=== PATIENT | male | born 1955 | race Caucasian/White ===

== ENCOUNTER 2020-08-28 11:30 | Inpatient (IN) ==
[2020-08-28 12:05] LABS: Hemoglobin 10.5 GM/DL (14.0-18.0); Immature Granulocytes % 0.8 %; Immature Granulocytes Absolute 0.04 #; Lymphocytes # 1.3 10*3/uL (1.4-4.0); Mean Platelet Volume 10.1 FL (9.6-12.0); Neutrophils % 65.2 % (38.7-73.9); Platelet Count 121 T/CUMM (130-400); Red Blood Count 3.37 MC/CUMM (3.8-5.5); Red Cell Distribution Width 14.6 % (9.3-17.3); White Blood Count 4.9 T/CUMM (4-12)
[2020-08-28 12:27] LABS: Bilirubin,Total 0.6 MG/DL (0.2-1.0); Calcium 7.6 MG/DL (8.5-10.1); Ferritin 364.5 ng/ml (26-388); Total Protein 6.4 G/DL (6.4-8.3)
[2020-08-28 12:28] LABS: Anisocytosis 1+; Platelet Estimate Adequate
[2020-08-28] MEDS ORDERED: SODIUM CHLORIDE 0.9% 1,000 ML IV STA ×2 (12:34→13:07)
[2020-08-28 12:59] LABS: PT Patient Result 10.6 SECS (9.8-11.9)
[2020-08-28] MEDS ORDERED: GLUCAGON 1 MG VIAL IM PRN (13:40)
[2020-08-28] MEDS ORDERED: DEXTROSE 50% 25 GM/50 ML VIAL IV PRN (13:40)
[2020-08-28] MEDS ORDERED: ONDANSETRON 4 MG/2 ML VIAL IV PRN (13:40)
[2020-08-28] MEDS ORDERED: POTASSIUM CHLORIDE 20 MEQ TABLET PO ONE (13:43)
[2020-08-28] MEDS ORDERED: CETIRIZINE 10 MG TABLET PO STA (13:45)
[2020-08-28] MEDS ORDERED: AZITHROMYCIN INJ 500 MG in SODIUM CHLORIDE 0.9% 250 ML IV STA (13:47)
[2020-08-28] MEDS ORDERED: DEXAMETHASONE INJ 6 MG in SODIUM CHLORIDE 0.9% 50 ML IV SCH (14:00)
[2020-08-28] MEDS ORDERED: AZITHROMYCIN INJ 250 MG in SODIUM CHLORIDE 0.9% 250 ML IV SCH (14:00)
[2020-08-28] MEDS ORDERED: cefTRIAXone 1,000 MG in SYRINGE 1 EACH IV SCH (14:00)
[2020-08-28] MEDS ORDERED: DEXAMETHASONE 4 MG/1 ML VIAL ONE (14:15)
[2020-08-28] MEDS: ENOXAPARIN 40 MG/0.4 ML SYRINGE SUBCUT SCH (14:27)
[2020-08-28] MEDS ORDERED: REMDESIVIR 200 MG in SODIUM CHLORIDE 0.9% 210 ML IV ONE (16:00)
[2020-08-28] MEDS: INSULIN LISPRO 100 UNIT/ML SUBCUT SCH ×2 (16:00→23:58)
[2020-08-28] MEDS: ZINC GLUCONATE 50 MG TABLET PO SCH (16:25)
[2020-08-28] MEDS: CHOLECALCIFEROL 400 UNIT TABLET PO SCH (16:25)
[2020-08-28] MEDS: ASCORBIC ACID 500 MG TABLET PO SCH ×2 (16:25→22:30)
[2020-08-28] MEDS: ACETAMINOPHEN 325 MG TABLET PO PRN (16:33)
[2020-08-28] MEDS: ALBUTEROL INHALER 18 GM INH SCH (18:14)
[2020-08-28] MEDS: FAMOTIDINE 20 MG TABLET PO SCH (23:57)
[2020-08-29 02:06] LABS: Albumin 2.7 G/DL (3.4-5.0); Bilirubin,Total 0.4 MG/DL (0.2-1.0); Calcium 7.4 MG/DL (8.5-10.1); Osmolality,Calculated 288.7 MOS/KG (273-304); Total Protein 6.6 G/DL (6.4-8.3)
[2020-08-29 02:07] LABS: Risk Ratio 2.71; VLDL CHOLESTEROL 20.6 MG/DL
[2020-08-29 02:18] LABS: Basophils % 0.3 % (0.0-0.8); Hematocrit 30.2 VOL% (42.0-52.0); Hemoglobin 10.5 GM/DL (14.0-18.0); Immature Granulocytes % 0.8 %; Immature Granulocytes Absolute 0.03 #; Lymphocytes # 1.1 10*3/uL (1.4-4.0); Lymphocytes % 29.4 % (21.2-54.2); Mean Corpuscular HGB Conc 34.8 GM/DL (32-36); Mean Corpuscular Volume 90.4 FL (87-102); Mean Platelet Volume 10.1 FL (9.6-12.0); Monocytes % 6.3 % (1.7-12.7); Neutrophils % 63.2 % (38.7-73.9); Platelet Count 115 T/CUMM (130-400); Red Blood Count 3.34 MC/CUMM (3.8-5.5); Red Cell Distribution Width 14.6 % (9.3-17.3); White Blood Count 3.8 T/CUMM (4-12)
[2020-08-29 02:36] LABS: Ferritin 385.7 ng/ml (26-388)
[2020-08-29 04:00] LABS: Hypochromasia 1+; Microcytosis 1+; Platelet Estimate Decreased
[2020-08-29] MEDS: REMDESIVIR 100 MG in SODIUM CHLORIDE 0.9% 100 ML IV SCH (08:50)
[2020-08-29] MEDS: ASCORBIC ACID 500 MG TABLET PO SCH ×2 (08:50→21:30)
[2020-08-29] MEDS: FAMOTIDINE 20 MG TABLET PO SCH ×2 (08:50→21:29)
[2020-08-29] MEDS: ZINC GLUCONATE 50 MG TABLET PO SCH (08:50)
[2020-08-29] MEDS: CHOLECALCIFEROL 400 UNIT TABLET PO SCH (08:50)
[2020-08-29] MEDS: ALBUTEROL INHALER 18 GM INH SCH ×4 (08:50→18:15)
[2020-08-29] MEDS: AZITHROMYCIN 250 MG TABLET PO SCH (08:50)
[2020-08-29] MEDS: DEXAMETHASONE 4 MG/1 ML VIAL IV SCH (08:51)
[2020-08-29] MEDS: INSULIN LISPRO 100 UNIT/ML SUBCUT SCH ×4 (08:51→21:28)
[2020-08-29] MEDS: cefTRIAXone 1,000 MG in SYRINGE 1 EACH IV SCH (08:52)
[2020-08-29] MEDS ORDERED: SODIUM CHLORIDE 0.9% 1,000 ML IV PRN (11:55)
[2020-08-29] MEDS ORDERED: INSULIN NPH/REGULAR 70/30 100 UNIT/ML SUBCUT SCH (17:00)
[2020-08-29] MEDS ORDERED: SIMVASTATIN 20 MG TABLET PO SCH (21:00)
[2020-08-29] MEDS: ENOXAPARIN 40 MG/0.4 ML SYRINGE SUBCUT SCH (21:29)
[2020-08-30 02:42] LABS: ABG Base Excess 4.5 MMOL/L (-2.5-2.5); ABG HCO3 27.9 MMOL/L (20-26); ABG Oxygen Saturation 67.9 % (95-100); ABG PCO2 40.4 MM HG (35-48); ABG PH 7.459 (7.35-7.45); ABG TCO2 25.5 MMOL/L (23-27); Allen Test Positive
[2020-08-30 02:50] LABS: ABG PO2 36.4 MM HG (80-95)
[2020-08-30] MEDS: ALBUTEROL INHALER 18 GM INH SCH ×4 (03:27→18:02)
[2020-08-30 06:27] LABS: Basophils % 0.1 % (0.0-0.8); Hematocrit 33.7 VOL% (42.0-52.0); Hemoglobin 11.5 GM/DL (14.0-18.0); Immature Granulocytes Absolute 0.07 #; Lymphocytes # 1.2 10*3/uL (1.4-4.0); Lymphocytes % 16.9 % (21.2-54.2); Mean Corpuscular HGB Conc 34.1 GM/DL (32-36); Mean Corpuscular Volume 90.8 FL (87-102); Mean Platelet Volume 9.2 FL (9.6-12.0); Monocytes % 7.6 % (1.7-12.7); NRBC # 0.03 10*3/uL; Neutrophils % 74.4 % (38.7-73.9); Platelet Count 132 T/CUMM (130-400); Red Blood Count 3.71 MC/CUMM (3.8-5.5); Red Cell Distribution Width 14.4 % (9.3-17.3)
[2020-08-30 07:00] LABS: Albumin 2.8 G/DL (3.4-5.0); Bilirubin,Total 1.4 MG/DL (0.2-1.0); Calcium 7.7 MG/DL (8.5-10.1); Ferritin 456.9 ng/ml (26-388); Osmolality,Calculated 282.1 MOS/KG (273-304); Total Protein 6.8 G/DL (6.4-8.3)
[2020-08-30] MEDS ORDERED: INSULIN NPH/REGULAR 70/30 100 UNIT/ML SUBCUT SCH (08:00)
[2020-08-30] MEDS: INSULIN LISPRO 100 UNIT/ML SUBCUT SCH ×4 (08:59→21:40)
[2020-08-30] MEDS: cefTRIAXone 1,000 MG in SYRINGE 1 EACH IV SCH (09:01)
[2020-08-30] MEDS: DEXAMETHASONE 4 MG/1 ML VIAL IV SCH (09:02)
[2020-08-30] MEDS: ZINC GLUCONATE 50 MG TABLET PO SCH (09:02)
[2020-08-30] MEDS: ASCORBIC ACID 500 MG TABLET PO SCH ×2 (09:02→21:36)
[2020-08-30] MEDS: FOLIC ACID 1 MG TABLET PO SCH (09:02)
[2020-08-30] MEDS: FAMOTIDINE 20 MG TABLET PO SCH ×2 (09:02→21:36)
[2020-08-30] MEDS: CHOLECALCIFEROL 400 UNIT TABLET PO SCH (09:02)
[2020-08-30] MEDS: AZITHROMYCIN 250 MG TABLET PO SCH (09:02)
[2020-08-30] MEDS: REMDESIVIR 100 MG in SODIUM CHLORIDE 0.9% 100 ML IV SCH (09:30)
[2020-08-30] MEDS ORDERED: MAGNESIUM SULF RIDER 2 GM in PREMIX 1 EACH IV PRN (09:50)
[2020-08-30] MEDS ORDERED: MAGNESIUM SULF RIDER 4 GM in PREMIX 1 EACH IV PRN (09:50)
[2020-08-30 10:06] LABS: Bilirubin,Urine Negative (Negative); Blood, Urine Negative (Negative); Glucose,Urine (UA) Negative (Negative); Hyaline Casts,Urine 1 /LPF (0-3); Ketones,Urine Negative (Negative); Nitrite,Urine Negative (Negative); Protein,Urine Negative; RBC,Urine 1 /HPF (0-4); Urine Appearance CLEAR (Clear); Urine Color Yellow (Yellow); Urine Specific Gravity 1.016 (1.001-1.035); WBC,Urine 2 /HPF (0-6)
[2020-08-30] MEDS: ENOXAPARIN 40 MG/0.4 ML SYRINGE SUBCUT SCH ×2 (10:31→21:37)
[2020-08-30] MEDS: methylPREDNISolone SOD SUC 40 MG/1 ML VIAL IV SCH ×3 (11:40→23:57)
[2020-08-30 12:51] LABS: Sedimentation Rate-Westergren 80 MM/HR (0-20)
[2020-08-30] MEDS: POTASSIUM CHLORIDE 20 MEQ TABLET PO PRN ×2 (14:40→17:32)
[2020-08-30 22:17] LABS: ABG Base Excess 3.2 MMOL/L (-2.5-2.5); ABG HCO3 27.2 MMOL/L (20-26); ABG Oxygen Saturation 95.4 % (95-100); ABG PCO2 37.6 MM HG (35-48); ABG PH 7.463 (7.35-7.45); ABG PO2 76.8 MM HG (80-95); ABG TCO2 24.1 MMOL/L (23-27)
[2020-08-31] MEDS: MORPHINE 4 MG/1 ML VIAL IV PRN ×2 (02:01→20:55)
[2020-08-31 04:19] LABS: ABG Base Excess 3.9 MMOL/L (-2.5-2.5); ABG HCO3 27.9 MMOL/L (20-26); ABG Oxygen Saturation 97.9 % (95-100); ABG PCO2 39.9 MM HG (35-48); ABG PH 7.463 (7.35-7.45); ABG PO2 123.5 MM HG (80-95); ABG TCO2 29.2 MMOL/L (23-27); Allen Test Positive; Pt O2 Delivery Device BIPAP
[2020-08-31] MEDS: POTASSIUM CHLORIDE 20 MEQ TABLET PO PRN (04:37)
[2020-08-31] MEDS: ALBUTEROL INHALER 18 GM INH SCH ×4 (04:50→18:14)
[2020-08-31] MEDS: methylPREDNISolone SOD SUC 40 MG/1 ML VIAL IV SCH ×2 (05:57→20:53)
[2020-08-31 07:22] LABS: Basophils % 0.2 % (0.0-0.8); Hematocrit 31.8 VOL% (42.0-52.0); Hemoglobin 10.5 GM/DL (14.0-18.0); Immature Granulocytes % 1.4 %; Immature Granulocytes Absolute 0.06 #; Lymphocytes % 23.3 % (21.2-54.2); Mean Corpuscular Volume 92.7 FL (87-102); Mean Platelet Volume 9.6 FL (9.6-12.0); Monocytes % 6.9 % (1.7-12.7); NRBC # 0.03 10*3/uL; Neutrophils % 68.2 % (38.7-73.9); Platelet Count 149 T/CUMM (130-400); Red Blood Count 3.43 MC/CUMM (3.8-5.5); Red Cell Distribution Width 14.6 % (9.3-17.3)
[2020-08-31 07:27] LABS: White Blood Count 4.4 T/CUMM (4-12)
[2020-08-31 07:52] LABS: Albumin 2.8 G/DL (3.4-5.0); Bilirubin,Total 0.6 MG/DL (0.2-1.0); Ferritin 417.6 ng/ml (26-388); Osmolality,Calculated 297.1 MOS/KG (273-304); Total Protein 6.6 G/DL (6.4-8.3)
[2020-08-31 08:38] LABS: Band Neutrophils 10 % (0-10); Lymphocytes 18 % (20-55); Metamyelocytes 1 %; Nucleated Red Blood Cells 2 (0-5); Segmented Neutrophils 65 % (50-85); Total Cells Counted 100
[2020-08-31 08:39] LABS: Anisocytosis 2+; Macrocytosis Slight; Tear Drop Cells Few
[2020-08-31] MEDS: INSULIN LISPRO 100 UNIT/ML SUBCUT SCH ×4 (08:48→20:52)
[2020-08-31] MEDS: FAMOTIDINE 20 MG TABLET PO SCH ×2 (08:49→20:58)
[2020-08-31] MEDS: CHOLECALCIFEROL 400 UNIT TABLET PO SCH (08:49)
[2020-08-31] MEDS: ASCORBIC ACID 500 MG TABLET PO SCH ×2 (08:49→20:58)
[2020-08-31] MEDS: cefTRIAXone 1,000 MG in SYRINGE 1 EACH IV SCH (08:49)
[2020-08-31] MEDS: AZITHROMYCIN 250 MG TABLET PO SCH (08:49)
[2020-08-31] MEDS: ZINC GLUCONATE 50 MG TABLET PO SCH (08:49)
[2020-08-31] MEDS: FOLIC ACID 1 MG TABLET PO SCH (08:50)
[2020-08-31] MEDS: ENOXAPARIN 40 MG/0.4 ML SYRINGE SUBCUT SCH ×2 (09:09→20:52)
[2020-08-31] MEDS: REMDESIVIR 100 MG in SODIUM CHLORIDE 0.9% 100 ML IV SCH (09:56)
[2020-08-31 10:00] LABS: Sedimentation Rate-Westergren 101 MM/HR (0-20)
[2020-08-31] MEDS ORDERED: INSULIN GLARGINE 100 UNIT/ML SUBCUT SCH ×2 (10:30→11:00)
[2020-09-01] MEDS: ALBUTEROL INHALER 18 GM INH SCH ×4 (01:34→18:01)
[2020-09-01 04:29] LABS: Basophils % 0.1 % (0.0-0.8); Hematocrit 32.6 VOL% (42.0-52.0); Hemoglobin 10.6 GM/DL (14.0-18.0); Immature Granulocytes % 1.4 %; Lymphocytes # 0.9 10*3/uL (1.4-4.0); Lymphocytes % 13.3 % (21.2-54.2); Mean Corpuscular HGB Conc 32.5 GM/DL (32-36); Mean Corpuscular Volume 94.8 FL (87-102); Mean Platelet Volume 9.6 FL (9.6-12.0); Monocytes % 5.3 % (1.7-12.7); NRBC # 0.02 10*3/uL; Neutrophils % 79.9 % (38.7-73.9); Platelet Count 145 T/CUMM (130-400); Red Blood Count 3.44 MC/CUMM (3.8-5.5); Red Cell Distribution Width 14.4 % (9.3-17.3); White Blood Count 6.9 T/CUMM (4-12)
[2020-09-01 04:43] LABS: ABG Base Excess 2.2 MMOL/L (-2.5-2.5); ABG HCO3 26.3 MMOL/L (20-26); ABG Oxygen Saturation 98.8 % (95-100); ABG PCO2 43.6 MM HG (35-48); ABG PH 7.404 (7.35-7.45); ABG TCO2 24.1 MMOL/L (23-27); Allen Test Positive; Pt O2 Delivery Device BIPAP
[2020-09-01 05:30] LABS: Albumin 2.7 G/DL (3.4-5.0); Bilirubin,Total 0.5 MG/DL (0.2-1.0); Calcium 7.9 MG/DL (8.5-10.1); Ferritin 419.8 ng/ml (26-388); Osmolality,Calculated 298.1 MOS/KG (273-304); Total Protein 6.5 G/DL (6.4-8.3)
[2020-09-01 05:47] LABS: Sedimentation Rate-Westergren 82 MM/HR (0-20)
[2020-09-01] MEDS ORDERED: FUROSEMIDE 40 MG/4 ML VIAL IV ONE (08:10)
[2020-09-01] MEDS: ZINC GLUCONATE 50 MG TABLET PO SCH (09:25)
[2020-09-01] MEDS: cefTRIAXone 1,000 MG in SYRINGE 1 EACH IV SCH (09:25)
[2020-09-01] MEDS: ASCORBIC ACID 500 MG TABLET PO SCH ×2 (09:25→20:45)
[2020-09-01] MEDS: CHOLECALCIFEROL 400 UNIT TABLET PO SCH (09:25)
[2020-09-01] MEDS: AZITHROMYCIN 250 MG TABLET PO SCH (09:25)
[2020-09-01] MEDS: FOLIC ACID 1 MG TABLET PO SCH (09:25)
[2020-09-01] MEDS: FAMOTIDINE 20 MG TABLET PO SCH ×2 (09:25→20:45)
[2020-09-01] MEDS: ENOXAPARIN 40 MG/0.4 ML SYRINGE SUBCUT SCH ×2 (09:26→21:00)
[2020-09-01] MEDS: methylPREDNISolone SOD SUC 40 MG/1 ML VIAL IV SCH ×2 (09:26→20:45)
[2020-09-01] MEDS: INSULIN ASPART PROTAMINE/ASPART 70/30 100 UNIT/ML SUBCUT SCH ×2 (09:33→16:57)
[2020-09-01] MEDS: INSULIN LISPRO 100 UNIT/ML SUBCUT SCH ×4 (09:34→20:44)
[2020-09-01] MEDS: REMDESIVIR 100 MG in SODIUM CHLORIDE 0.9% 100 ML IV SCH (10:22)
[2020-09-02] MEDS: ALBUTEROL INHALER 18 GM INH SCH ×4 (00:26→18:30)
[2020-09-02 04:26] LABS: Basophils % 0.1 % (0.0-0.8); Eosinophils % 0.2 % (0.00-10.9); Hematocrit 31.8 VOL% (42.0-52.0); Hemoglobin 10.9 GM/DL (14.0-18.0); Immature Granulocytes % 1.9 %; Immature Granulocytes Absolute 0.18 #; Lymphocytes # 1.3 10*3/uL (1.4-4.0); Mean Corpuscular HGB Conc 34.3 GM/DL (32-36); Mean Corpuscular Volume 91.6 FL (87-102); Mean Platelet Volume 9.8 FL (9.6-12.0); Monocytes % 5.3 % (1.7-12.7); Neutrophils % 78.5 % (38.7-73.9); Platelet Count 158 T/CUMM (130-400); Red Blood Count 3.47 MC/CUMM (3.8-5.5); Red Cell Distribution Width 14.3 % (9.3-17.3); White Blood Count 9.4 T/CUMM (4-12)
[2020-09-02 04:30] LABS: ABG Base Excess 3.2 MMOL/L (-2.5-2.5); ABG HCO3 27.2 MMOL/L (20-26); ABG Oxygen Saturation 98.5 % (95-100); ABG PCO2 41.2 MM HG (35-48); ABG PH 7.435 (7.35-7.45); ABG TCO2 24.5 MMOL/L (23-27); Allen Test Positive; Pt O2 Delivery Device BIPAP
[2020-09-02 04:42] LABS: Calcium 7.9 MG/DL (8.5-10.1); Ferritin 515.3 ng/ml (26-388); Osmolality,Calculated 290.8 MOS/KG (273-304)
[2020-09-02] MEDS: INSULIN LISPRO 100 UNIT/ML SUBCUT SCH ×4 (07:50→21:40)
[2020-09-02] MEDS: ZINC GLUCONATE 50 MG TABLET PO SCH (09:11)
[2020-09-02] MEDS: ASCORBIC ACID 500 MG TABLET PO SCH ×2 (09:11→21:41)
[2020-09-02] MEDS: FAMOTIDINE 20 MG TABLET PO SCH ×2 (09:11→21:40)
[2020-09-02] MEDS: FOLIC ACID 1 MG TABLET PO SCH (09:11)
[2020-09-02] MEDS: CHOLECALCIFEROL 400 UNIT TABLET PO SCH (09:11)
[2020-09-02] MEDS: ENOXAPARIN 40 MG/0.4 ML SYRINGE SUBCUT SCH ×2 (09:12→21:41)
[2020-09-02] MEDS: methylPREDNISolone SOD SUC 40 MG/1 ML VIAL IV SCH ×2 (09:12→21:40)
[2020-09-02] MEDS: POTASSIUM CHLORIDE 20 MEQ TABLET PO PRN ×2 (09:12→12:29)
[2020-09-02] MEDS: INSULIN ASPART PROTAMINE/ASPART 70/30 100 UNIT/ML SUBCUT SCH ×2 (09:14→16:22)
[2020-09-02] MEDS: cefTRIAXone 1,000 MG in SYRINGE 1 EACH IV SCH (09:14)
[2020-09-02] MEDS: ACETAMINOPHEN 325 MG TABLET PO PRN (12:28)
[2020-09-02] MEDS: MORPHINE 4 MG/1 ML VIAL IV PRN (14:53)
[2020-09-03] MEDS: ALBUTEROL INHALER 18 GM INH SCH ×4 (00:25→18:10)
[2020-09-03 04:07] LABS: Basophils % 0.1 % (0.0-0.8); Eosinophils % 0.1 % (0.00-10.9); Hematocrit 35.1 VOL% (42.0-52.0); Hemoglobin 11.5 GM/DL (14.0-18.0); Immature Granulocytes % 1.9 %; Immature Granulocytes Absolute 0.17 #; Lymphocytes # 1.1 10*3/uL (1.4-4.0); Lymphocytes % 12.1 % (21.2-54.2); Mean Corpuscular HGB Conc 32.8 GM/DL (32-36); Mean Corpuscular Volume 93.4 FL (87-102); Mean Platelet Volume 10.5 FL (9.6-12.0); Monocytes % 3.2 % (1.7-12.7); Neutrophils % 82.6 % (38.7-73.9); Red Blood Count 3.76 MC/CUMM (3.8-5.5); Red Cell Distribution Width 14.6 % (9.3-17.3); White Blood Count 9.2 T/CUMM (4-12)
[2020-09-03 04:15] LABS: Platelet Count 125 T/CUMM (130-400)
[2020-09-03 04:34] LABS: Calcium 8.1 MG/DL (8.5-10.1); Osmolality,Calculated 283.1 MOS/KG (273-304)
[2020-09-03 05:06] LABS: Platelet Estimate Adequate; Polychromasia Few
[2020-09-03] MEDS: INSULIN LISPRO 100 UNIT/ML SUBCUT SCH ×4 (08:57→20:29)
[2020-09-03] MEDS: INSULIN ASPART PROTAMINE/ASPART 70/30 100 UNIT/ML SUBCUT SCH ×2 (09:39→17:40)
[2020-09-03] MEDS: CHOLECALCIFEROL 400 UNIT TABLET PO SCH (09:40)
[2020-09-03] MEDS: FOLIC ACID 1 MG TABLET PO SCH (09:40)
[2020-09-03] MEDS: ZINC GLUCONATE 50 MG TABLET PO SCH (09:40)
[2020-09-03] MEDS: POTASSIUM CHLORIDE 20 MEQ TABLET PO PRN (09:40)
[2020-09-03] MEDS: ASCORBIC ACID 500 MG TABLET PO SCH ×2 (09:40→20:29)
[2020-09-03] MEDS: FAMOTIDINE 20 MG TABLET PO SCH ×2 (09:40→20:29)
[2020-09-03] MEDS: methylPREDNISolone SOD SUC 40 MG/1 ML VIAL IV SCH ×2 (09:41→20:29)
[2020-09-03] MEDS: ENOXAPARIN 40 MG/0.4 ML SYRINGE SUBCUT SCH ×2 (09:42→21:55)
[2020-09-03] MEDS: cefTRIAXone 1,000 MG in SYRINGE 1 EACH IV SCH (09:45)
[2020-09-03] MEDS ORDERED: FUROSEMIDE 40 MG/4 ML VIAL IV ONE (10:26)
[2020-09-03] MEDS: amLODIPine 10 MG TABLET PO SCH (14:29)
[2020-09-03] MEDS: lisinopriL 5 MG TABLET PO SCH (14:29)
[2020-09-03] MEDS: MORPHINE 4 MG/1 ML VIAL IV PRN (20:30)
[2020-09-04] MEDS: ALBUTEROL INHALER 18 GM INH SCH ×4 (02:32→19:00)
[2020-09-04] MEDS: INSULIN LISPRO 100 UNIT/ML SUBCUT SCH ×4 (08:48→21:04)
[2020-09-04] MEDS: INSULIN ASPART PROTAMINE/ASPART 70/30 100 UNIT/ML SUBCUT SCH ×2 (08:49→18:42)
[2020-09-04] MEDS: FOLIC ACID 1 MG TABLET PO SCH (08:49)
[2020-09-04] MEDS: cefTRIAXone 1,000 MG in SYRINGE 1 EACH IV SCH (08:49)
[2020-09-04] MEDS: amLODIPine 10 MG TABLET PO SCH (08:49)
[2020-09-04] MEDS: lisinopriL 5 MG TABLET PO SCH ×2 (08:50→21:04)
[2020-09-04] MEDS: ZINC GLUCONATE 50 MG TABLET PO SCH (08:50)
[2020-09-04] MEDS: ASCORBIC ACID 500 MG TABLET PO SCH ×2 (08:50→21:03)
[2020-09-04] MEDS: FAMOTIDINE 20 MG TABLET PO SCH ×2 (08:50→21:04)
[2020-09-04] MEDS: CHOLECALCIFEROL 400 UNIT TABLET PO SCH (08:50)
[2020-09-04] MEDS: methylPREDNISolone SOD SUC 40 MG/1 ML VIAL IV SCH ×2 (08:50→21:04)
[2020-09-04] MEDS: ENOXAPARIN 40 MG/0.4 ML SYRINGE SUBCUT SCH ×2 (10:01→21:04)
[2020-09-04] MEDS: hydrALAZINE 20 MG/1 ML VIAL IV PRN (12:20)
[2020-09-04] MEDS: MORPHINE 4 MG/1 ML VIAL IV PRN (13:52)
[2020-09-04] MEDS: ALPRAZolam 0.25 MG TABLET PO SCH ×2 (14:40→21:04)
[2020-09-05] MEDS: ALBUTEROL INHALER 18 GM INH SCH ×4 (01:00→18:00)
[2020-09-05] MEDS: MORPHINE 4 MG/1 ML VIAL IV PRN (01:01)
[2020-09-05 04:48] LABS: Basophils % 0.2 % (0.0-0.8); Eosinophils % 0.1 % (0.00-10.9); Hemoglobin 13.3 GM/DL (14.0-18.0); Immature Granulocytes % 1.3 %; Immature Granulocytes Absolute 0.17 #; Lymphocytes # 1.9 10*3/uL (1.4-4.0); Lymphocytes % 14.7 % (21.2-54.2); Mean Corpuscular HGB Conc 34.1 GM/DL (32-36); Mean Corpuscular Volume 89.7 FL (87-102); Mean Platelet Volume 9.5 FL (9.6-12.0); Monocytes % 3.3 % (1.7-12.7); Neutrophils % 80.4 % (38.7-73.9); Platelet Count 166 T/CUMM (130-400); Red Blood Count 4.35 MC/CUMM (3.8-5.5); Red Cell Distribution Width 14.2 % (9.3-17.3); White Blood Count 12.6 T/CUMM (4-12)
[2020-09-05 05:02] LABS: ABG Base Excess 4.4 MMOL/L (-2.5-2.5); ABG HCO3 28.3 MMOL/L (20-26); ABG Oxygen Saturation 95.3 % (95-100); ABG PCO2 42.1 MM HG (35-48); ABG PH 7.445 (7.35-7.45); Allen Test Positive; Pt O2 Delivery Device BIPAP
[2020-09-05 05:26] LABS: Calcium 8.2 MG/DL (8.5-10.1); Osmolality,Calculated 285.1 MOS/KG (273-304)
[2020-09-05] MEDS: INSULIN LISPRO 100 UNIT/ML SUBCUT SCH ×4 (07:44→20:22)
[2020-09-05] MEDS: ALPRAZolam 0.25 MG TABLET PO SCH ×3 (08:59→20:20)
[2020-09-05] MEDS: ZINC GLUCONATE 50 MG TABLET PO SCH (08:59)
[2020-09-05] MEDS: ASCORBIC ACID 500 MG TABLET PO SCH ×2 (08:59→20:20)
[2020-09-05] MEDS: amLODIPine 10 MG TABLET PO SCH (09:00)
[2020-09-05] MEDS: FOLIC ACID 1 MG TABLET PO SCH (09:00)
[2020-09-05] MEDS: CHOLECALCIFEROL 400 UNIT TABLET PO SCH (09:00)
[2020-09-05] MEDS: lisinopriL 5 MG TABLET PO SCH ×2 (09:00→20:22)
[2020-09-05] MEDS: methylPREDNISolone SOD SUC 40 MG/1 ML VIAL IV SCH ×2 (09:00→20:22)
[2020-09-05] MEDS: ENOXAPARIN 40 MG/0.4 ML SYRINGE SUBCUT SCH ×2 (09:00→21:11)
[2020-09-05] MEDS: FAMOTIDINE 20 MG TABLET PO SCH ×2 (09:00→20:20)
[2020-09-05] MEDS: cefTRIAXone 1,000 MG in SYRINGE 1 EACH IV SCH ×2 (09:26→20:27)
[2020-09-05] MEDS: INSULIN ASPART PROTAMINE/ASPART 70/30 100 UNIT/ML SUBCUT SCH (09:27)
[2020-09-05] MEDS: POTASSIUM CHLORIDE 20 MEQ TABLET PO PRN (18:00)
[2020-09-05] MEDS: DOCUSATE SODIUM 100 MG CAPSULE PO SCH (20:20)
[2020-09-05] MEDS: HALOPERIDOL 5 MG/ML AMP IV PRN (20:26)
[2020-09-05] MEDS: ZIPRASIDONE 20 MG/1 ML VIAL IM PRN (21:51)
[2020-09-06] MEDS: ALBUTEROL INHALER 18 GM INH SCH ×4 (01:28→18:00)
[2020-09-06] MEDS: INSULIN LISPRO 100 UNIT/ML SUBCUT SCH ×4 (07:58→20:28)
[2020-09-06] MEDS: ZIPRASIDONE 20 MG/1 ML VIAL IM PRN ×2 (07:58→22:36)
[2020-09-06] MEDS: INSULIN ASPART PROTAMINE/ASPART 70/30 100 UNIT/ML SUBCUT SCH ×2 (09:11→17:36)
[2020-09-06] MEDS: FAMOTIDINE 20 MG TABLET PO SCH ×2 (09:11→20:29)
[2020-09-06] MEDS: amLODIPine 10 MG TABLET PO SCH (09:11)
[2020-09-06] MEDS: ASCORBIC ACID 500 MG TABLET PO SCH ×2 (09:11→20:28)
[2020-09-06] MEDS: CHOLECALCIFEROL 400 UNIT TABLET PO SCH (09:11)
[2020-09-06] MEDS: lisinopriL 5 MG TABLET PO SCH ×2 (09:11→20:29)
[2020-09-06] MEDS: ZINC GLUCONATE 50 MG TABLET PO SCH (09:11)
[2020-09-06] MEDS: ENOXAPARIN 40 MG/0.4 ML SYRINGE SUBCUT SCH ×2 (09:11→21:03)
[2020-09-06] MEDS: FOLIC ACID 1 MG TABLET PO SCH (09:11)
[2020-09-06] MEDS: ALPRAZolam 0.25 MG TABLET PO SCH ×3 (09:11→20:29)
[2020-09-06] MEDS: methylPREDNISolone SOD SUC 40 MG/1 ML VIAL IV SCH ×2 (09:11→20:28)
[2020-09-06] MEDS: DOCUSATE SODIUM 100 MG CAPSULE PO SCH ×2 (09:11→20:29)
[2020-09-06] MEDS ORDERED: FUROSEMIDE 40 MG/4 ML VIAL IV ONE (09:24)
[2020-09-06] MEDS: HALOPERIDOL 5 MG/ML AMP IV PRN ×2 (11:58→20:28)
[2020-09-06] MEDS: cefTRIAXone 1,000 MG in SYRINGE 1 EACH IV SCH (20:27)
[2020-09-07] MEDS: ALBUTEROL INHALER 18 GM INH SCH ×4 (01:36→21:44)
[2020-09-07 03:55] LABS: Basophils % 0.1 % (0.0-0.8); Eosinophils % 0.2 % (0.00-10.9); Hematocrit 37.3 VOL% (42.0-52.0); Hemoglobin 12.5 GM/DL (14.0-18.0); Lymphocytes # 1.1 10*3/uL (1.4-4.0); Lymphocytes % 10.8 % (21.2-54.2); Mean Corpuscular HGB Conc 33.5 GM/DL (32-36); Mean Corpuscular Volume 90.3 FL (87-102); Mean Platelet Volume 9.9 FL (9.6-12.0); Monocytes % 3.9 % (1.7-12.7); Platelet Count 152 T/CUMM (130-400); Red Blood Count 4.13 MC/CUMM (3.8-5.5); Red Cell Distribution Width 14.2 % (9.3-17.3); White Blood Count 10.2 T/CUMM (4-12)
[2020-09-07 03:58] LABS: Allen Test Positive; Pt O2 Delivery Device BIPAP
[2020-09-07 03:59] LABS: ABG Base Excess 5.4 MMOL/L (-2.5-2.5); ABG Oxygen Saturation 98.2 % (95-100); ABG PCO2 44.1 MM HG (35-48); ABG PH 7.451 (7.35-7.45); ABG PO2 123.9 MM HG (80-95); ABG TCO2 31.4 MMOL/L (23-27)
[2020-09-07 04:25] LABS: Calcium 8.2 MG/DL (8.5-10.1); Osmolality,Calculated 295.8 MOS/KG (273-304)
[2020-09-07] MEDS: HALOPERIDOL 5 MG/ML AMP IV PRN ×3 (04:50→19:49)
[2020-09-07] MEDS: INSULIN LISPRO 100 UNIT/ML SUBCUT SCH ×4 (07:30→21:49)
[2020-09-07] MEDS: ALPRAZolam 0.25 MG TABLET PO SCH ×3 (08:42→21:52)
[2020-09-07] MEDS: DOCUSATE SODIUM 100 MG CAPSULE PO SCH ×2 (08:42→21:49)
[2020-09-07] MEDS: FAMOTIDINE 20 MG TABLET PO SCH ×2 (08:42→21:50)
[2020-09-07] MEDS: amLODIPine 10 MG TABLET PO SCH (08:42)
[2020-09-07] MEDS: ZINC GLUCONATE 50 MG TABLET PO SCH (08:43)
[2020-09-07] MEDS: ASCORBIC ACID 500 MG TABLET PO SCH ×2 (08:43→21:51)
[2020-09-07] MEDS: lisinopriL 5 MG TABLET PO SCH ×2 (08:43→21:50)
[2020-09-07] MEDS: methylPREDNISolone SOD SUC 40 MG/1 ML VIAL IV SCH ×2 (08:43→21:50)
[2020-09-07] MEDS: CHOLECALCIFEROL 400 UNIT TABLET PO SCH (08:43)
[2020-09-07] MEDS: FOLIC ACID 1 MG TABLET PO SCH (08:43)
[2020-09-07] MEDS: ZIPRASIDONE 20 MG/1 ML VIAL IM PRN (08:44)
[2020-09-07] MEDS: INSULIN ASPART PROTAMINE/ASPART 70/30 100 UNIT/ML SUBCUT SCH ×2 (09:31→16:43)
[2020-09-07] MEDS ORDERED: FUROSEMIDE 40 MG/4 ML VIAL IV ONE (10:22)
[2020-09-07] MEDS: ENOXAPARIN 40 MG/0.4 ML SYRINGE SUBCUT SCH ×2 (10:30→21:53)
[2020-09-07] MEDS: DEXMEDETOMIDINE 400 MCG in SODIUM CHLORIDE 0.9% 96 ML IV PRN ×2 (14:22→19:51)
[2020-09-07] MEDS: POLYETHYLENE GLYCOL POWDER 17 GM PACK PO SCH (21:50)
[2020-09-08] MEDS: ALBUTEROL INHALER 18 GM INH SCH ×4 (01:04→20:13)
[2020-09-08] MEDS: cefTRIAXone 1,000 MG in SYRINGE 1 EACH IV SCH (01:04)
[2020-09-08] MEDS: HALOPERIDOL 5 MG/ML AMP IV PRN ×2 (02:47→12:39)
[2020-09-08] MEDS: DEXMEDETOMIDINE 400 MCG in SODIUM CHLORIDE 0.9% 96 ML IV PRN ×3 (02:51→22:49)
[2020-09-08 03:37] LABS: ABG Base Excess 5.3 MMOL/L (-2.5-2.5); ABG HCO3 29.1 MMOL/L (20-26); ABG Oxygen Saturation 91.2 % (95-100); ABG PCO2 39.8 MM HG (35-48); ABG PH 7.482 (7.35-7.45); ABG TCO2 30.3 MMOL/L (23-27); Allen Test Positive; Pt O2 Delivery Device BIPAP
[2020-09-08 04:39] LABS: Basophils % 0.1 % (0.0-0.8); Eosinophils % 0.1 % (0.00-10.9); Hematocrit 36.4 VOL% (42.0-52.0); Hemoglobin 11.9 GM/DL (14.0-18.0); Immature Granulocytes % 0.7 %; Immature Granulocytes Absolute 0.07 #; Lymphocytes % 10.3 % (21.2-54.2); Mean Corpuscular HGB Conc 32.7 GM/DL (32-36); Mean Corpuscular Volume 93.6 FL (87-102); Mean Platelet Volume 10.6 FL (9.6-12.0); Monocytes % 3.5 % (1.7-12.7); Neutrophils % 85.3 % (38.7-73.9); Platelet Count 128 T/CUMM (130-400); Red Blood Count 3.89 MC/CUMM (3.8-5.5); Red Cell Distribution Width 14.1 % (9.3-17.3); White Blood Count 9.7 T/CUMM (4-12)
[2020-09-08 04:55] LABS: Calcium 8.1 MG/DL (8.5-10.1); Osmolality,Calculated 302.6 MOS/KG (273-304)
[2020-09-08 05:36] LABS: Microcytosis 1+; Ovalocytes Slight; Platelet Estimate Adequate
[2020-09-08] MEDS: INSULIN LISPRO 100 UNIT/ML SUBCUT SCH ×4 (07:30→20:13)
[2020-09-08] MEDS ORDERED: LACTATED RINGERS 500 ML IV ONE (07:35)
[2020-09-08] MEDS: POLYETHYLENE GLYCOL POWDER 17 GM PACK PO SCH (08:16)
[2020-09-08] MEDS: INSULIN ASPART PROTAMINE/ASPART 70/30 100 UNIT/ML SUBCUT SCH ×3 (08:16→16:35)
[2020-09-08] MEDS: ZINC GLUCONATE 50 MG TABLET PO SCH (08:16)
[2020-09-08] MEDS: methylPREDNISolone SOD SUC 40 MG/1 ML VIAL IV SCH ×2 (08:16→20:12)
[2020-09-08] MEDS: ALPRAZolam 0.25 MG TABLET PO SCH ×3 (08:16→20:14)
[2020-09-08] MEDS: DOCUSATE SODIUM 100 MG CAPSULE PO SCH ×2 (08:16→20:12)
[2020-09-08] MEDS: CHOLECALCIFEROL 400 UNIT TABLET PO SCH (08:17)
[2020-09-08] MEDS: ASCORBIC ACID 500 MG TABLET PO SCH ×2 (08:17→20:14)
[2020-09-08] MEDS: POTASSIUM CHLORIDE 20 MEQ TABLET PO PRN (08:17)
[2020-09-08] MEDS: FOLIC ACID 1 MG TABLET PO SCH (08:17)
[2020-09-08] MEDS: FAMOTIDINE 20 MG TABLET PO SCH ×2 (08:20→20:14)
[2020-09-08] MEDS: SODIUM CHLORIDE 0.45% 1,000 ML IV SCH ×2 (09:16→21:50)
[2020-09-08] MEDS: amLODIPine 10 MG TABLET PO SCH (09:17)
[2020-09-08] MEDS: lisinopriL 5 MG TABLET PO SCH ×2 (09:17→20:14)
[2020-09-08] MEDS: ENOXAPARIN 40 MG/0.4 ML SYRINGE SUBCUT SCH ×2 (09:17→22:50)
[2020-09-08] MEDS: ZIPRASIDONE 20 MG/1 ML VIAL IM PRN ×2 (09:24→12:39)
[2020-09-09] MEDS: HALOPERIDOL 5 MG/ML AMP IV PRN ×3 (00:22→22:05)
[2020-09-09] MEDS ORDERED: MORPHINE 4 MG/1 ML VIAL ONE (00:26)
[2020-09-09] MEDS: MORPHINE 4 MG/1 ML VIAL IV PRN ×4 (00:35→19:34)
[2020-09-09] MEDS: cefTRIAXone 1,000 MG in SYRINGE 1 EACH IV SCH (00:49)
[2020-09-09] MEDS: ALBUTEROL INHALER 18 GM INH SCH ×4 (02:21→18:46)
[2020-09-09 03:21] LABS: ABG HCO3 27.1 MMOL/L (20-26); ABG Oxygen Saturation 97.7 % (95-100); ABG PCO2 44.5 MM HG (35-48); ABG PH 7.409 (7.35-7.45); ABG PO2 99.3 MM HG (80-95); ABG TCO2 25.4 MMOL/L (23-27); Allen Test Positive; Pt O2 Delivery Device BIPAP
[2020-09-09 04:24] LABS: Eosinophils % 0.5 % (0.00-10.9); Hematocrit 34.3 VOL% (42.0-52.0); Hemoglobin 11.1 GM/DL (14.0-18.0); Immature Granulocytes % 0.8 %; Immature Granulocytes Absolute 0.05 #; Lymphocytes # 0.7 10*3/uL (1.4-4.0); Lymphocytes % 11.1 % (21.2-54.2); Mean Corpuscular HGB Conc 32.4 GM/DL (32-36); Mean Platelet Volume 10.9 FL (9.6-12.0); Monocytes % 3.7 % (1.7-12.7); Neutrophils % 83.9 % (38.7-73.9); Platelet Count 106 T/CUMM (130-400); Red Blood Count 3.69 MC/CUMM (3.8-5.5); Red Cell Distribution Width 13.8 % (9.3-17.3); White Blood Count 6.5 T/CUMM (4-12)
[2020-09-09 04:51] LABS: Calcium 7.7 MG/DL (8.5-10.1); Osmolality,Calculated 301.7 MOS/KG (273-304)
[2020-09-09] MEDS: DEXMEDETOMIDINE 400 MCG in SODIUM CHLORIDE 0.9% 96 ML IV PRN ×3 (06:05→18:42)
[2020-09-09] MEDS: SODIUM CHLORIDE 0.45% 1,000 ML IV SCH ×3 (06:35→16:45)
[2020-09-09] MEDS: FOLIC ACID 1 MG TABLET PO SCH ×2 (09:32→10:52)
[2020-09-09] MEDS: lisinopriL 5 MG TABLET PO SCH ×3 (09:32→22:13)
[2020-09-09] MEDS: ASCORBIC ACID 500 MG TABLET PO SCH ×3 (09:32→22:13)
[2020-09-09] MEDS: CHOLECALCIFEROL 400 UNIT TABLET PO SCH ×2 (09:32→10:53)
[2020-09-09] MEDS: ZINC GLUCONATE 50 MG TABLET PO SCH ×2 (09:33→10:53)
[2020-09-09] MEDS: DOCUSATE SODIUM 100 MG CAPSULE PO SCH ×3 (09:33→22:13)
[2020-09-09] MEDS: FAMOTIDINE 20 MG TABLET PO SCH ×3 (09:33→22:13)
[2020-09-09] MEDS: INSULIN LISPRO 100 UNIT/ML SUBCUT SCH ×4 (09:33→20:12)
[2020-09-09] MEDS: methylPREDNISolone SOD SUC 40 MG/1 ML VIAL IV SCH ×2 (09:34→21:50)
[2020-09-09] MEDS: ENOXAPARIN 40 MG/0.4 ML SYRINGE SUBCUT SCH ×2 (09:35→21:50)
[2020-09-09] MEDS: POLYETHYLENE GLYCOL POWDER 17 GM PACK PO SCH ×2 (09:35→10:52)
[2020-09-09] MEDS: ALPRAZolam 0.25 MG TABLET PO SCH ×3 (09:36→22:14)
[2020-09-09] MEDS: amLODIPine 10 MG TABLET PO SCH (09:36)
[2020-09-09] MEDS ORDERED: ETOMIDATE 20 MG/10 ML VIAL IV ONE (16:46)
[2020-09-09] MEDS ORDERED: SUCCINYLCHOLINE 200 MG/10 ML VIAL ONE (16:46)
[2020-09-09] MEDS: ZIPRASIDONE 20 MG/1 ML VIAL IM PRN (19:40)
[2020-09-10] MEDS: HALOPERIDOL 5 MG/ML AMP IV PRN ×4 (00:28→11:37)
[2020-09-10] MEDS: cefTRIAXone 1,000 MG in SYRINGE 1 EACH IV SCH ×2 (00:28→23:00)
[2020-09-10] MEDS: MORPHINE 4 MG/1 ML VIAL IV PRN ×5 (00:36→13:53)
[2020-09-10] MEDS: DEXMEDETOMIDINE 400 MCG in SODIUM CHLORIDE 0.9% 96 ML IV PRN ×3 (01:32→14:55)
[2020-09-10] MEDS: ALBUTEROL INHALER 18 GM INH SCH ×4 (01:32→18:06)
[2020-09-10] MEDS ORDERED: VECURONIUM 10 MG VIAL IV ONE (02:21)
[2020-09-10] MEDS ORDERED: ETOMIDATE 20 MG/10 ML VIAL IV ONE ×4 (02:21→17:01)
[2020-09-10] MEDS: SODIUM CHLORIDE 0.45% 1,000 ML IV SCH ×2 (02:36→12:42)
[2020-09-10 02:38] LABS: ABG Base Excess -0.7 MMOL/L (-2.5-2.5); ABG HCO3 23.7 MMOL/L (20-26); ABG Oxygen Saturation 91.1 % (95-100); ABG PCO2 42.7 MM HG (35-48); ABG PO2 67.3 MM HG (80-95); ABG TCO2 21.8 MMOL/L (23-27)
[2020-09-10 04:19] LABS: Basophils % 0.1 % (0.0-0.8); Eosinophils % 0.3 % (0.00-10.9); Hematocrit 36.4 VOL% (42.0-52.0); Hemoglobin 11.8 GM/DL (14.0-18.0); Immature Granulocytes % 1.9 %; Lymphocytes # 0.7 10*3/uL (1.4-4.0); Lymphocytes % 6.4 % (21.2-54.2); Mean Corpuscular HGB Conc 32.4 GM/DL (32-36); Mean Corpuscular Volume 94.3 FL (87-102); Monocytes % 3.2 % (1.7-12.7); Neutrophils % 88.1 % (38.7-73.9); Platelet Count 114 T/CUMM (130-400); Red Blood Count 3.86 MC/CUMM (3.8-5.5); Red Cell Distribution Width 14.1 % (9.3-17.3); White Blood Count 10.5 T/CUMM (4-12)
[2020-09-10 04:38] LABS: Albumin 2.1 G/DL (3.4-5.0); Bilirubin,Total 0.9 MG/DL (0.2-1.0); Osmolality,Calculated 299.6 MOS/KG (273-304); Total Protein 6.3 G/DL (6.4-8.3)
[2020-09-10 04:46] LABS: Hypochromasia Slight; Microcytosis 1+
[2020-09-10] MEDS ORDERED: SUCCINYLCHOLINE 200 MG/10 ML VIAL ONE ×2 (07:18→16:50)
[2020-09-10] MEDS: ZIPRASIDONE 20 MG/1 ML VIAL IM PRN ×2 (08:01→16:30)
[2020-09-10] MEDS: INSULIN LISPRO 100 UNIT/ML SUBCUT SCH ×3 (08:51→16:31)
[2020-09-10] MEDS: methylPREDNISolone SOD SUC 40 MG/1 ML VIAL IV SCH ×2 (08:52→20:28)
[2020-09-10] MEDS: lisinopriL 5 MG TABLET PO SCH ×2 (09:24→20:27)
[2020-09-10] MEDS: DOCUSATE SODIUM 100 MG CAPSULE PO SCH ×2 (09:24→20:27)
[2020-09-10] MEDS: FOLIC ACID 1 MG TABLET PO SCH (09:24)
[2020-09-10] MEDS: FAMOTIDINE 20 MG TABLET PO SCH ×2 (09:24→20:27)
[2020-09-10] MEDS: POLYETHYLENE GLYCOL POWDER 17 GM PACK PO SCH (09:24)
[2020-09-10] MEDS: amLODIPine 10 MG TABLET PO SCH (09:24)
[2020-09-10] MEDS: CHOLECALCIFEROL 400 UNIT TABLET PO SCH (09:25)
[2020-09-10] MEDS: ASCORBIC ACID 500 MG TABLET PO SCH ×2 (09:25→20:27)
[2020-09-10] MEDS: ALPRAZolam 0.25 MG TABLET PO SCH ×3 (09:26→20:27)
[2020-09-10] MEDS: ZINC GLUCONATE 50 MG TABLET PO SCH (09:26)
[2020-09-10] MEDS: ENOXAPARIN 40 MG/0.4 ML SYRINGE SUBCUT SCH ×2 (09:27→22:31)
[2020-09-10] MEDS ORDERED: SUCCINYLCHOLINE 200 MG/10 ML VIAL IV ONE (17:02)
[2020-09-10 17:48] LABS: ABG Base Excess -2.2 MMOL/L (-2.5-2.5); ABG HCO3 22.5 MMOL/L (20-26); ABG Oxygen Saturation 95.4 % (95-100); ABG PCO2 47.2 MM HG (35-48); ABG PO2 87.5 MM HG (80-95); ABG TCO2 21.5 MMOL/L (23-27)
[2020-09-11] MEDS: SODIUM CHLORIDE 0.45% 1,000 ML IV SCH ×5 (00:04→20:19)
[2020-09-11] MEDS: INSULIN LISPRO 100 UNIT/ML SUBCUT SCH ×4 (00:05→17:36)
[2020-09-11] MEDS: ALBUTEROL INHALER 18 GM INH SCH ×4 (02:23→22:02)
[2020-09-11 04:32] LABS: Allen Test Positive; Pt O2 Delivery Device Ventilator
[2020-09-11 04:37] LABS: ABG Base Excess 1.3 MMOL/L (-2.5-2.5); ABG HCO3 25.9 MMOL/L (20-26); ABG Oxygen Saturation 98.4 % (95-100); ABG PCO2 40.8 MM HG (35-48); ABG PO2 144.4 MM HG (80-95); ABG TCO2 27.1 MMOL/L (23-27)
[2020-09-11 05:03] LABS: Basophils % 0.2 % (0.0-0.8); Eosinophils % 0.1 % (0.00-10.9); Hematocrit 32.1 VOL% (42.0-52.0); Hemoglobin 10.5 GM/DL (14.0-18.0); Immature Granulocytes % 2.3 %; Immature Granulocytes Absolute 0.26 #; Lymphocytes # 0.7 10*3/uL (1.4-4.0); Lymphocytes % 6.4 % (21.2-54.2); Mean Corpuscular HGB Conc 32.7 GM/DL (32-36); Mean Corpuscular Volume 93.6 FL (87-102); Mean Platelet Volume 10.9 FL (9.6-12.0); Monocytes % 3.2 % (1.7-12.7); Neutrophils % 87.8 % (38.7-73.9); Platelet Count 145 T/CUMM (130-400); Red Blood Count 3.43 MC/CUMM (3.8-5.5); Red Cell Distribution Width 14.7 % (9.3-17.3); White Blood Count 11.2 T/CUMM (4-12)
[2020-09-11 05:33] LABS: Albumin 1.9 G/DL (3.4-5.0); Bilirubin,Total 0.8 MG/DL (0.2-1.0); Calcium 7.5 MG/DL (8.5-10.1); Ferritin 560.2 ng/ml (26-388); Total Protein 5.6 G/DL (6.4-8.3)
[2020-09-11] MEDS: POLYETHYLENE GLYCOL POWDER 17 GM PACK PO SCH (08:10)
[2020-09-11] MEDS: DOCUSATE SODIUM 100 MG CAPSULE PO SCH ×2 (08:11→20:13)
[2020-09-11] MEDS: FOLIC ACID 1 MG TABLET PO SCH (08:11)
[2020-09-11] MEDS: ZINC GLUCONATE 50 MG TABLET PO SCH (08:11)
[2020-09-11] MEDS: CHOLECALCIFEROL 400 UNIT TABLET PO SCH (08:11)
[2020-09-11] MEDS: methylPREDNISolone SOD SUC 40 MG/1 ML VIAL IV SCH ×2 (08:11→20:13)
[2020-09-11] MEDS: FAMOTIDINE 20 MG TABLET PO SCH ×2 (08:12→22:03)
[2020-09-11] MEDS: ASCORBIC ACID 500 MG TABLET PO SCH ×2 (08:12→20:13)
[2020-09-11] MEDS: ALPRAZolam 0.25 MG TABLET PO SCH ×3 (08:12→20:13)
[2020-09-11] MEDS: lisinopriL 5 MG TABLET PO SCH ×2 (08:12→20:13)
[2020-09-11] MEDS: ENOXAPARIN 40 MG/0.4 ML SYRINGE SUBCUT SCH ×2 (09:56→22:03)
[2020-09-11] MEDS: amLODIPine 10 MG TABLET PO SCH (09:57)
[2020-09-12] MEDS: cefTRIAXone 1,000 MG in SYRINGE 1 EACH IV SCH (01:25)
[2020-09-12] MEDS: INSULIN LISPRO 100 UNIT/ML SUBCUT SCH ×4 (01:25→18:24)
[2020-09-12] MEDS: ALBUTEROL INHALER 18 GM INH SCH ×4 (01:26→20:03)
[2020-09-12 03:20] LABS: ABG Base Excess 2.5 MMOL/L (-2.5-2.5); ABG HCO3 26.6 MMOL/L (20-26); ABG Oxygen Saturation 95.6 % (95-100); ABG PCO2 52.5 MM HG (35-48); ABG PH 7.351 (7.35-7.45); ABG PO2 81.3 MM HG (80-95); ABG TCO2 26.5 MMOL/L (23-27)
[2020-09-12 04:23] LABS: Eosinophils % 0.1 % (0.00-10.9); Hematocrit 27.3 VOL% (42.0-52.0); Immature Granulocytes % 1.8 %; Immature Granulocytes Absolute 0.16 #; Lymphocytes # 0.6 10*3/uL (1.4-4.0); Lymphocytes % 6.6 % (21.2-54.2); Mean Corpuscular Volume 94.1 FL (87-102); Mean Platelet Volume 10.5 FL (9.6-12.0); Monocytes % 4.4 % (1.7-12.7); Neutrophils % 87.1 % (38.7-73.9); Platelet Count 117 T/CUMM (130-400); Red Cell Distribution Width 14.8 % (9.3-17.3); White Blood Count 8.8 T/CUMM (4-12)
[2020-09-12 04:48] LABS: Hypochromasia 1+; Microcytosis 1+; Ovalocytes Slight
[2020-09-12 04:52] LABS: Calcium 7.6 MG/DL (8.5-10.1); Osmolality,Calculated 295.3 MOS/KG (273-304)
[2020-09-12] MEDS: SODIUM CHLORIDE 0.45% 1,000 ML IV SCH (06:30)
[2020-09-12] MEDS: FAMOTIDINE 20 MG TABLET PO SCH ×2 (08:08→20:02)
[2020-09-12] MEDS: DOCUSATE SODIUM 100 MG CAPSULE PO SCH ×2 (08:08→20:04)
[2020-09-12] MEDS: FOLIC ACID 1 MG TABLET PO SCH (08:08)
[2020-09-12] MEDS: CHOLECALCIFEROL 400 UNIT TABLET PO SCH (08:08)
[2020-09-12] MEDS: lisinopriL 5 MG TABLET PO SCH ×2 (08:08→20:02)
[2020-09-12] MEDS: ZINC GLUCONATE 50 MG TABLET PO SCH (08:08)
[2020-09-12] MEDS: ASCORBIC ACID 500 MG TABLET PO SCH ×2 (08:08→20:02)
[2020-09-12] MEDS: POLYETHYLENE GLYCOL POWDER 17 GM PACK PO SCH (08:08)
[2020-09-12] MEDS: methylPREDNISolone SOD SUC 40 MG/1 ML VIAL IV SCH ×2 (08:08→20:02)
[2020-09-12] MEDS: ENOXAPARIN 40 MG/0.4 ML SYRINGE SUBCUT SCH ×2 (09:27→21:29)
[2020-09-12] MEDS ORDERED: INSULIN GLARGINE 100 UNIT/ML SUBCUT SCH (12:00)
[2020-09-12] MEDS: amLODIPine 10 MG TABLET PO SCH (12:52)
[2020-09-12] MEDS: MORPHINE 4 MG/1 ML VIAL IV PRN (20:03)
[2020-09-13] MEDS: cefTRIAXone 1,000 MG in SYRINGE 1 EACH IV SCH (00:42)
[2020-09-13] MEDS: INSULIN LISPRO 100 UNIT/ML SUBCUT SCH ×4 (00:56→18:27)
[2020-09-13] MEDS: ALBUTEROL INHALER 18 GM INH SCH ×4 (02:29→18:27)
[2020-09-13 03:11] LABS: ABG Base Excess 6.1 MMOL/L (-2.5-2.5); ABG HCO3 29.9 MMOL/L (20-26); ABG Oxygen Saturation 94.4 % (95-100); ABG PCO2 52.1 MM HG (35-48); ABG PH 7.396 (7.35-7.45); ABG PO2 73.2 MM HG (80-95); ABG TCO2 29.6 MMOL/L (23-27); Allen Test Positive; Pt O2 Delivery Device Ventilator
[2020-09-13 05:53] LABS: Eosinophils % 0.3 % (0.00-10.9); Hematocrit 28.4 VOL% (42.0-52.0); Hemoglobin 9.2 GM/DL (14.0-18.0); Immature Granulocytes % 1.6 %; Lymphocytes # 0.6 10*3/uL (1.4-4.0); Mean Corpuscular HGB Conc 32.4 GM/DL (32-36); Mean Corpuscular Volume 95.9 FL (87-102); Mean Platelet Volume 10.8 FL (9.6-12.0); Monocytes % 3.9 % (1.7-12.7); NRBC # 0.02 10*3/uL; Neutrophils % 85.2 % (38.7-73.9); Red Blood Count 2.96 MC/CUMM (3.8-5.5); Red Cell Distribution Width 14.9 % (9.3-17.3); White Blood Count 6.2 T/CUMM (4-12)
[2020-09-13 05:56] LABS: Platelet Count 94 T/CUMM (130-400)
[2020-09-13 06:14] LABS: Calcium 8.1 MG/DL (8.5-10.1); Osmolality,Calculated 298.1 MOS/KG (273-304)
[2020-09-13 06:18] LABS: Ferritin 447.2 ng/ml (26-388)
[2020-09-13 07:47] LABS: Hypochromasia 1+
[2020-09-13 07:48] LABS: Microcytosis 1+; Platelet Estimate Decreased
[2020-09-13] MEDS: DOCUSATE SODIUM 100 MG CAPSULE PO SCH ×2 (08:52→20:07)
[2020-09-13] MEDS: FAMOTIDINE 20 MG TABLET PO SCH ×2 (08:52→20:07)
[2020-09-13] MEDS: ZINC GLUCONATE 50 MG TABLET PO SCH (08:52)
[2020-09-13] MEDS: ASCORBIC ACID 500 MG TABLET PO SCH ×2 (08:52→20:07)
[2020-09-13] MEDS: CHOLECALCIFEROL 400 UNIT TABLET PO SCH (08:52)
[2020-09-13] MEDS: FOLIC ACID 1 MG TABLET PO SCH (08:52)
[2020-09-13] MEDS: amLODIPine 10 MG TABLET PO SCH (08:53)
[2020-09-13] MEDS: methylPREDNISolone SOD SUC 40 MG/1 ML VIAL IV SCH ×2 (08:53→20:08)
[2020-09-13] MEDS: lisinopriL 5 MG TABLET PO SCH (08:53)
[2020-09-13] MEDS: POLYETHYLENE GLYCOL POWDER 17 GM PACK PO SCH (08:54)
[2020-09-13] MEDS: ENOXAPARIN 40 MG/0.4 ML SYRINGE SUBCUT SCH (09:01)
[2020-09-13] MEDS: INSULIN GLARGINE 100 UNIT/ML SUBCUT SCH (09:01)
[2020-09-13] MEDS ORDERED: lisinopriL 5 MG TABLET PO ONE (11:00)
[2020-09-13] MEDS: fentaNYL INJ 1,250 MCG in SODIUM CHLORIDE 0.9% 225 ML IV PRN (12:54)
[2020-09-13] MEDS: CISATRACURIUM 200 MG in SODIUM CHLORIDE 0.9% 180 ML IV PRN (12:54)
[2020-09-13 14:39] LABS: Allen Test Positive; Pt O2 Delivery Device Ventilator
[2020-09-13 14:40] LABS: ABG Base Excess 6.2 MMOL/L (-2.5-2.5); ABG HCO3 34.9 MMOL/L (20-26); ABG Oxygen Saturation 93.1 % (95-100); ABG PH 7.292 (7.35-7.45); ABG PO2 79.3 MM HG (80-95); ABG TCO2 37.2 MMOL/L (23-27)
[2020-09-13 14:49] LABS: ABG PCO2 73.9 MM HG (35-48)
[2020-09-13] MEDS: lisinopriL 10 MG TABLET PO SCH (20:07)
[2020-09-14] MEDS: INSULIN LISPRO 100 UNIT/ML SUBCUT SCH ×4 (00:39→18:00)
[2020-09-14] MEDS: hydrALAZINE 20 MG/1 ML VIAL IV PRN (00:56)
[2020-09-14] MEDS: ACETAMINOPHEN 325 MG TABLET PO PRN ×2 (01:00→06:34)
[2020-09-14] MEDS: CISATRACURIUM 200 MG in SODIUM CHLORIDE 0.9% 180 ML IV PRN ×2 (01:07→09:42)
[2020-09-14] MEDS: ALBUTEROL INHALER 18 GM INH SCH ×4 (01:36→18:03)
[2020-09-14 05:02] LABS: ABG Base Excess 8.1 MMOL/L (-2.5-2.5); ABG HCO3 31.8 MMOL/L (20-26); ABG Oxygen Saturation 93.9 % (95-100); ABG PCO2 68.7 MM HG (35-48); ABG PH 7.338 (7.35-7.45); ABG PO2 73.8 MM HG (80-95); ABG TCO2 32.7 MMOL/L (23-27); Allen Test Positive; Pt O2 Delivery Device Ventilator
[2020-09-14 05:55] LABS: Basophils % 0.1 % (0.0-0.8); Eosinophils # 0.1 10*3/uL (0.0-0.87); Eosinophils % 0.5 % (0.00-10.9); Hematocrit 32.2 VOL% (42.0-52.0); Hemoglobin 10.4 GM/DL (14.0-18.0); Immature Granulocytes % 1.5 %; Immature Granulocytes Absolute 0.16 #; Lymphocytes # 0.4 10*3/uL (1.4-4.0); Lymphocytes % 3.9 % (21.2-54.2); Mean Corpuscular HGB Conc 32.3 GM/DL (32-36); Mean Corpuscular Volume 95.3 FL (87-102); Mean Platelet Volume 10.7 FL (9.6-12.0); Monocytes % 2.9 % (1.7-12.7); NRBC # 0.02 10*3/uL; Neutrophils % 91.1 % (38.7-73.9); Platelet Count 106 T/CUMM (130-400); Red Blood Count 3.38 MC/CUMM (3.8-5.5); Red Cell Distribution Width 16.2 % (9.3-17.3); White Blood Count 10.9 T/CUMM (4-12)
[2020-09-14 06:21] LABS: Albumin 1.7 G/DL (3.4-5.0); Bilirubin,Total 1.2 MG/DL (0.2-1.0); Calcium 8.7 MG/DL (8.5-10.1); Osmolality,Calculated 291.4 MOS/KG (273-304); Total Protein 6.2 G/DL (6.4-8.3)
[2020-09-14 07:49] LABS: Anisocytosis 1+; Band Neutrophils 2 % (0-10); Eosinophils 1 % (0-10); Lymphocytes 4 % (20-55); Macrocytosis 1+; Platelet Estimate Decreased; Segmented Neutrophils 90 % (50-85); Total Cells Counted 100
[2020-09-14] MEDS: FONDAPARINUX 7.5 MG/0.6 ML SYRINGE SUBCUT SCH (09:23)
[2020-09-14] MEDS: amLODIPine 10 MG TABLET PO SCH (09:24)
[2020-09-14] MEDS: INSULIN GLARGINE 100 UNIT/ML SUBCUT SCH (09:24)
[2020-09-14] MEDS: CHOLECALCIFEROL 400 UNIT TABLET PO SCH (09:24)
[2020-09-14] MEDS: ASCORBIC ACID 500 MG TABLET PO SCH ×2 (09:24→20:12)
[2020-09-14] MEDS: FAMOTIDINE 20 MG TABLET PO SCH ×2 (09:24→20:13)
[2020-09-14] MEDS: ZINC GLUCONATE 50 MG TABLET PO SCH (09:24)
[2020-09-14] MEDS: FOLIC ACID 1 MG TABLET PO SCH (09:24)
[2020-09-14] MEDS: lisinopriL 10 MG TABLET PO SCH ×2 (09:24→20:12)
[2020-09-14] MEDS: DOCUSATE SODIUM 100 MG CAPSULE PO SCH ×2 (09:24→20:12)
[2020-09-14] MEDS: POLYETHYLENE GLYCOL POWDER 17 GM PACK PO SCH (09:25)
[2020-09-14] MEDS: methylPREDNISolone SOD SUC 40 MG/1 ML VIAL IV SCH ×2 (09:25→20:12)
[2020-09-14 10:52] LABS: Bacteria,Urine Occasional /HPF (Few); Bilirubin,Urine Negative (Negative); Blood, Urine Negative (Negative); Glucose,Urine (UA) 50 mg/dL (Negative); Ketones,Urine Negative (Negative); Nitrite,Urine Negative (Negative); Protein,Urine 30 MG/DL; RBC,Urine 1 /HPF (0-4); Squamous Epithelial Cell,Urine Occasional /HPF (0-10); Urine Appearance CLEAR (Clear); Urine Color Yellow (Yellow); Urine Specific Gravity 1.026 (1.001-1.035); WBC,Urine 1 /HPF (0-6)
[2020-09-14] MEDS: PIPERACILLIN/TAZOBACTAM 3,375 MG in SODIUM CHLORIDE 0.9% 100 ML IV SCH ×2 (10:52→18:35)
[2020-09-14] MEDS ORDERED: INSULIN GLARGINE 100 UNIT/ML SUBCUT ONE (13:33)
[2020-09-14] MEDS: VANCOMYCIN INJ 1,500 MG in SODIUM CHLORIDE 0.9% 500 ML IV SCH (14:45)
[2020-09-14] MEDS: fentaNYL INJ 1,250 MCG in SODIUM CHLORIDE 0.9% 225 ML IV PRN (15:00)
[2020-09-14] MEDS ORDERED: VECURONIUM 10 MG VIAL IV ONE (18:30)
[2020-09-14] MEDS ORDERED: VECURONIUM 100 MG in SODIUM CHLORIDE 0.9% 100 ML IV SCH (18:30)
[2020-09-14] MEDS: VECURONIUM 100 MG in SODIUM CHLORIDE 0.9% 100 ML IV SCH (19:45)
[2020-09-15] MEDS: INSULIN LISPRO 100 UNIT/ML SUBCUT SCH ×4 (01:03→18:30)
[2020-09-15] MEDS: ALBUTEROL INHALER 18 GM INH SCH ×4 (02:00→18:31)
[2020-09-15] MEDS: VANCOMYCIN INJ 1,500 MG in SODIUM CHLORIDE 0.9% 500 ML IV SCH ×2 (02:03→14:19)
[2020-09-15] MEDS: PIPERACILLIN/TAZOBACTAM 3,375 MG in SODIUM CHLORIDE 0.9% 100 ML IV SCH (04:00)
[2020-09-15 04:37] LABS: Eosinophils % 0.3 % (0.00-10.9); Hematocrit 24.1 VOL% (42.0-52.0); Hemoglobin 7.8 GM/DL (14.0-18.0); Immature Granulocytes % 2.4 %; Immature Granulocytes Absolute 0.09 #; Lymphocytes # 0.4 10*3/uL (1.4-4.0); Lymphocytes % 11.1 % (21.2-54.2); Mean Corpuscular HGB Conc 32.4 GM/DL (32-36); Mean Corpuscular Volume 96.4 FL (87-102); Mean Platelet Volume 11.1 FL (9.6-12.0); Monocytes % 4.2 % (1.7-12.7); Red Cell Distribution Width 15.8 % (9.3-17.3); White Blood Count 3.8 T/CUMM (4-12)
[2020-09-15 04:48] LABS: Platelet Count 73 T/CUMM (130-400)
[2020-09-15 04:57] LABS: PT Patient Result 10.6 SECS (9.8-11.9)
[2020-09-15 05:48] LABS: ABG Base Excess 8.6 MMOL/L (-2.5-2.5); ABG HCO3 32.4 MMOL/L (20-26); ABG Oxygen Saturation 99.5 % (95-100); ABG PCO2 60.5 MM HG (35-48); ABG PH 7.375 (7.35-7.45); ABG TCO2 33.1 MMOL/L (23-27); Allen Test Positive; Pt O2 Delivery Device Ventilator
[2020-09-15 06:09] LABS: Calcium 7.7 MG/DL (8.5-10.1); Osmolality,Calculated 300.3 MOS/KG (273-304)
[2020-09-15 08:37] LABS: Anisocytosis 1+; Band Neutrophils 3 % (0-10); Lymphocytes 10 % (20-55); Macrocytosis 1+; Platelet Estimate Decreased; Polychromasia Few; Segmented Neutrophils 84 % (50-85); Total Cells Counted 100
[2020-09-15] MEDS ORDERED: INSULIN GLARGINE 100 UNIT/ML SUBCUT SCH (09:00)
[2020-09-15] MEDS: DOCUSATE SODIUM 100 MG CAPSULE PO SCH ×2 (09:30→20:53)
[2020-09-15] MEDS: CHOLECALCIFEROL 400 UNIT TABLET PO SCH (09:30)
[2020-09-15] MEDS: amLODIPine 10 MG TABLET PO SCH (09:30)
[2020-09-15] MEDS: FOLIC ACID 1 MG TABLET PO SCH (09:30)
[2020-09-15] MEDS: FAMOTIDINE 20 MG TABLET PO SCH ×2 (09:30→21:25)
[2020-09-15] MEDS: lisinopriL 10 MG TABLET PO SCH ×2 (09:30→20:53)
[2020-09-15] MEDS: methylPREDNISolone SOD SUC 40 MG/1 ML VIAL IV SCH ×2 (09:30→20:54)
[2020-09-15] MEDS: INSULIN GLARGINE 100 UNIT/ML SUBCUT SCH (09:30)
[2020-09-15] MEDS: ZINC GLUCONATE 50 MG TABLET PO SCH (09:30)
[2020-09-15] MEDS: POLYETHYLENE GLYCOL POWDER 17 GM PACK PO SCH (09:30)
[2020-09-15] MEDS: ASCORBIC ACID 500 MG TABLET PO SCH ×2 (09:30→20:53)
[2020-09-15] MEDS: FONDAPARINUX 7.5 MG/0.6 ML SYRINGE SUBCUT SCH (10:11)
[2020-09-15] MEDS: MEROPENEM 500 MG in SODIUM CHLORIDE 0.9% 100 ML IV SCH ×3 (10:27→22:14)
[2020-09-15 14:34] LABS: Hematocrit 25.5 VOL% (42.0-52.0); Hemoglobin 8.4 GM/DL (14.0-18.0)
[2020-09-15] MEDS: fentaNYL INJ 1,250 MCG in SODIUM CHLORIDE 0.9% 225 ML IV PRN (15:30)
[2020-09-15] MEDS: VECURONIUM 100 MG in SODIUM CHLORIDE 0.9% 100 ML IV SCH (18:29)
[2020-09-16] MEDS: INSULIN LISPRO 100 UNIT/ML SUBCUT SCH ×4 (00:21→19:14)
[2020-09-16] MEDS: ALBUTEROL INHALER 18 GM INH SCH ×4 (00:22→19:57)
[2020-09-16] MEDS: fentaNYL INJ 1,250 MCG in SODIUM CHLORIDE 0.9% 225 ML IV PRN ×5 (01:19→19:11)
[2020-09-16] MEDS: VANCOMYCIN INJ 1,500 MG in SODIUM CHLORIDE 0.9% 500 ML IV SCH ×2 (02:55→18:00)
[2020-09-16 05:13] LABS: ABG Base Excess 8.6 MMOL/L (-2.5-2.5); ABG HCO3 32.3 MMOL/L (20-26); ABG Oxygen Saturation 95.6 % (95-100); ABG PCO2 63.1 MM HG (35-48); ABG PH 7.358 (7.35-7.45); ABG PO2 79.5 MM HG (80-95); ABG TCO2 33.6 MMOL/L (23-27); Allen Test Positive; Pt O2 Delivery Device Ventilator
[2020-09-16 05:17] LABS: Eosinophils # 0.1 10*3/uL (0.0-0.87); Eosinophils % 0.7 % (0.00-10.9); Hematocrit 23.9 VOL% (42.0-52.0); Hemoglobin 7.7 GM/DL (14.0-18.0); Immature Granulocytes % 1.5 %; Immature Granulocytes Absolute 0.11 #; Lymphocytes # 0.6 10*3/uL (1.4-4.0); Lymphocytes % 8.7 % (21.2-54.2); Mean Corpuscular HGB Conc 32.2 GM/DL (32-36); Mean Corpuscular Volume 97.6 FL (87-102); Mean Platelet Volume 10.8 FL (9.6-12.0); Monocytes % 4.8 % (1.7-12.7); NRBC # 0.02 10*3/uL; Neutrophils % 84.3 % (38.7-73.9); Platelet Count 74 T/CUMM (130-400); Red Blood Count 2.45 MC/CUMM (3.8-5.5); Red Cell Distribution Width 16.4 % (9.3-17.3); White Blood Count 7.4 T/CUMM (4-12)
[2020-09-16 05:40] LABS: Calcium 7.8 MG/DL (8.5-10.1); Osmolality,Calculated 302.8 MOS/KG (273-304)
[2020-09-16 05:45] LABS: Ferritin 439.2 ng/ml (26-388)
[2020-09-16 05:47] LABS: Hypochromasia 1+
[2020-09-16 05:48] LABS: Macrocytosis 1+; Ovalocytes Slight; Platelet Estimate Decreased; Polychromasia Slight
[2020-09-16] MEDS: VECURONIUM 100 MG in SODIUM CHLORIDE 0.9% 100 ML IV SCH ×2 (05:51→19:14)
[2020-09-16] MEDS: methylPREDNISolone SOD SUC 40 MG/1 ML VIAL IV SCH ×2 (08:03→20:02)
[2020-09-16] MEDS: POLYETHYLENE GLYCOL POWDER 17 GM PACK PO SCH (08:03)
[2020-09-16] MEDS: ZINC GLUCONATE 50 MG TABLET PO SCH (08:04)
[2020-09-16] MEDS: CHOLECALCIFEROL 400 UNIT TABLET PO SCH (08:04)
[2020-09-16] MEDS: FOLIC ACID 1 MG TABLET PO SCH (08:04)
[2020-09-16] MEDS: DOCUSATE SODIUM 100 MG CAPSULE PO SCH ×2 (08:04→20:01)
[2020-09-16] MEDS: ASCORBIC ACID 500 MG TABLET PO SCH ×2 (08:04→20:01)
[2020-09-16] MEDS: FAMOTIDINE 20 MG TABLET PO SCH ×2 (08:04→20:01)
[2020-09-16] MEDS: INSULIN GLARGINE 100 UNIT/ML SUBCUT SCH (08:04)
[2020-09-16] MEDS ORDERED: NOREPINEPHRINE 8 MG in SODIUM CHLORIDE 0.9% 242 ML IV PRN (14:24)
[2020-09-16] MEDS ORDERED: NOREPINEPHRINE 4 MG/4 ML VIAL IV ONE (14:32)
[2020-09-16] MEDS: amLODIPine 10 MG TABLET PO SCH (15:28)
[2020-09-16] MEDS: lisinopriL 10 MG TABLET PO SCH ×2 (15:28→20:09)
[2020-09-16] MEDS: MEROPENEM 500 MG in SODIUM CHLORIDE 0.9% 100 ML IV SCH ×2 (15:28→15:29)
[2020-09-16] MEDS: CIPROFLOXACIN INJ 400 MG in PREMIX 1 EACH IV SCH (15:37)
[2020-09-16] MEDS: ACETAMINOPHEN 325 MG TABLET PO PRN (16:15)
[2020-09-16] MEDS: FONDAPARINUX 7.5 MG/0.6 ML SYRINGE SUBCUT SCH (17:49)
[2020-09-16] MEDS: fentaNYL INJ 2,500 MCG in SODIUM CHLORIDE 0.9% 450 ML IV PRN (23:00)
[2020-09-17] MEDS: INSULIN LISPRO 100 UNIT/ML SUBCUT SCH ×4 (00:42→17:48)
[2020-09-17] MEDS: ALBUTEROL INHALER 18 GM INH SCH ×4 (00:43→20:13)
[2020-09-17 03:26] LABS: ABG HCO3 30.8 MMOL/L (20-26); ABG PCO2 60.5 MM HG (35-48); ABG PH 7.358 (7.35-7.45); ABG TCO2 31.4 MMOL/L (23-27); Allen Test Positive; Pt O2 Delivery Device Ventilator
[2020-09-17] MEDS: CIPROFLOXACIN INJ 400 MG in PREMIX 1 EACH IV SCH (03:33)
[2020-09-17 04:23] LABS: Eosinophils # 0.1 10*3/uL (0.0-0.87); Eosinophils % 0.8 % (0.00-10.9); Hematocrit 23.2 VOL% (42.0-52.0); Hemoglobin 7.4 GM/DL (14.0-18.0); Immature Granulocytes % 4.4 %; Immature Granulocytes Absolute 0.29 #; Lymphocytes # 1.1 10*3/uL (1.4-4.0); Lymphocytes % 16.6 % (21.2-54.2); Mean Corpuscular HGB Conc 31.9 GM/DL (32-36); Mean Corpuscular Volume 97.5 FL (87-102); Mean Platelet Volume 10.9 FL (9.6-12.0); NRBC # 0.05 10*3/uL; Neutrophils % 72.2 % (38.7-73.9); Red Blood Count 2.38 MC/CUMM (3.8-5.5); Red Cell Distribution Width 17.2 % (9.3-17.3); White Blood Count 6.5 T/CUMM (4-12)
[2020-09-17 04:26] LABS: Platelet Count 92 T/CUMM (130-400)
[2020-09-17 04:35] LABS: Calcium 7.3 MG/DL (8.5-10.1); Osmolality,Calculated 305.8 MOS/KG (273-304)
[2020-09-17 04:40] LABS: Band Neutrophils 1 % (0-10); Eosinophils 1 % (0-10); Lymphocytes 14 % (20-55); Platelet Estimate Decreased; Segmented Neutrophils 79 % (50-85); Total Cells Counted 100
[2020-09-17 04:41] LABS: Hypochromasia 1+; Microcytosis 1+
[2020-09-17] MEDS: VANCOMYCIN INJ 1,500 MG in SODIUM CHLORIDE 0.9% 500 ML IV SCH ×2 (06:20→17:51)
[2020-09-17] MEDS: fentaNYL INJ 2,500 MCG in SODIUM CHLORIDE 0.9% 450 ML IV PRN ×3 (06:21→21:51)
[2020-09-17] MEDS: methylPREDNISolone SOD SUC 40 MG/1 ML VIAL IV SCH ×2 (08:02→20:04)
[2020-09-17] MEDS: INSULIN GLARGINE 100 UNIT/ML SUBCUT SCH (08:02)
[2020-09-17] MEDS: FOLIC ACID 1 MG TABLET PO SCH (08:03)
[2020-09-17] MEDS: ASCORBIC ACID 500 MG TABLET PO SCH ×2 (08:03→20:04)
[2020-09-17] MEDS: DOCUSATE SODIUM 100 MG CAPSULE PO SCH ×2 (08:03→20:04)
[2020-09-17] MEDS: CHOLECALCIFEROL 400 UNIT TABLET PO SCH (08:03)
[2020-09-17] MEDS: ZINC GLUCONATE 50 MG TABLET PO SCH (08:03)
[2020-09-17] MEDS: POLYETHYLENE GLYCOL POWDER 17 GM PACK PO SCH (08:03)
[2020-09-17] MEDS: FAMOTIDINE 20 MG TABLET PO SCH ×2 (08:04→20:04)
[2020-09-17] MEDS: lisinopriL 10 MG TABLET PO SCH (09:35)
[2020-09-17] MEDS: amLODIPine 10 MG TABLET PO SCH (09:35)
[2020-09-17] MEDS: ALBUMIN 25% 25 GM in PREMIX 1 EACH IV SCH ×2 (13:10→20:14)
[2020-09-17] MEDS: cefTAZidime 2,000 MG in SYRINGE 1 EACH IV SCH ×2 (13:57→22:27)
[2020-09-17] MEDS: FONDAPARINUX 7.5 MG/0.6 ML SYRINGE SUBCUT SCH (13:57)
[2020-09-17] MEDS: FUROSEMIDE 40 MG/4 ML VIAL IV SCH (13:57)
[2020-09-17] MEDS: VECURONIUM 100 MG in SODIUM CHLORIDE 0.9% 100 ML IV SCH (19:00)
[2020-09-18] MEDS: INSULIN LISPRO 100 UNIT/ML SUBCUT SCH ×4 (00:39→18:21)
[2020-09-18] MEDS: ALBUTEROL INHALER 18 GM INH SCH ×4 (01:27→18:22)
[2020-09-18] MEDS: ALBUMIN 25% 25 GM in PREMIX 1 EACH IV SCH ×3 (03:05→22:00)
[2020-09-18 04:00] LABS: Allen Test Positive; Pt O2 Delivery Device Ventilator
[2020-09-18 04:01] LABS: ABG Base Excess 9.6 MMOL/L (-2.5-2.5); ABG HCO3 35.9 MMOL/L (20-26); ABG Oxygen Saturation 97.6 % (95-100); ABG PCO2 65.5 MM HG (35-48); ABG PH 7.357 (7.35-7.45); ABG PO2 108.8 MM HG (80-95); ABG TCO2 37.9 MMOL/L (23-27)
[2020-09-18] MEDS: fentaNYL INJ 2,500 MCG in SODIUM CHLORIDE 0.9% 450 ML IV PRN ×3 (04:41→19:16)
[2020-09-18 04:43] LABS: Eosinophils % 1.1 % (0.00-10.9); Hematocrit 19.1 VOL% (42.0-52.0); Immature Granulocytes % 4.3 %; Immature Granulocytes Absolute 0.15 #; Lymphocytes # 0.8 10*3/uL (1.4-4.0); Lymphocytes % 22.3 % (21.2-54.2); Mean Corpuscular HGB Conc 31.4 GM/DL (32-36); Mean Platelet Volume 10.6 FL (9.6-12.0); Monocytes % 5.7 % (1.7-12.7); NRBC # 0.07 10*3/uL; Neutrophils % 66.6 % (38.7-73.9); Red Blood Count 1.93 MC/CUMM (3.8-5.5); Red Cell Distribution Width 17.2 % (9.3-17.3); White Blood Count 3.5 T/CUMM (4-12)
[2020-09-18 04:51] LABS: Platelet Count 59 T/CUMM (130-400)
[2020-09-18 05:05] LABS: Calcium 7.8 MG/DL (8.5-10.1); Osmolality,Calculated 307.4 MOS/KG (273-304)
[2020-09-18 05:06] LABS: Hypochromasia 2+; Microcytosis 1+; Ovalocytes Slight; Platelet Estimate Decreased
[2020-09-18] MEDS: cefTAZidime 2,000 MG in SYRINGE 1 EACH IV SCH ×3 (06:14→22:00)
[2020-09-18] MEDS: VANCOMYCIN INJ 1,500 MG in SODIUM CHLORIDE 0.9% 500 ML IV SCH ×2 (06:17→18:22)
[2020-09-18] MEDS: FONDAPARINUX 7.5 MG/0.6 ML SYRINGE SUBCUT SCH (09:22)
[2020-09-18] MEDS: FUROSEMIDE 40 MG/4 ML VIAL IV SCH (09:22)
[2020-09-18] MEDS: POLYETHYLENE GLYCOL POWDER 17 GM PACK PO SCH (09:25)
[2020-09-18] MEDS: amLODIPine 10 MG TABLET PO SCH (09:25)
[2020-09-18] MEDS: lisinopriL 10 MG TABLET PO SCH (09:25)
[2020-09-18] MEDS: FAMOTIDINE 20 MG TABLET PO SCH ×2 (09:25→22:00)
[2020-09-18] MEDS: ASCORBIC ACID 500 MG TABLET PO SCH ×2 (09:25→22:00)
[2020-09-18] MEDS: DOCUSATE SODIUM 100 MG CAPSULE PO SCH ×2 (09:25→22:00)
[2020-09-18] MEDS: FOLIC ACID 1 MG TABLET PO SCH (09:25)
[2020-09-18] MEDS: CHOLECALCIFEROL 400 UNIT TABLET PO SCH (09:25)
[2020-09-18] MEDS: methylPREDNISolone SOD SUC 40 MG/1 ML VIAL IV SCH ×2 (09:26→22:00)
[2020-09-18] MEDS: ZINC GLUCONATE 50 MG TABLET PO SCH (09:26)
[2020-09-18] MEDS: INSULIN GLARGINE 100 UNIT/ML SUBCUT SCH (09:30)
[2020-09-18] MEDS: SUCRALFATE 1 GM/10 ML UDCUP NG SCH (18:25)
[2020-09-18] MEDS: VECURONIUM 100 MG in SODIUM CHLORIDE 0.9% 100 ML IV SCH (18:37)
[2020-09-19] MEDS: INSULIN LISPRO 100 UNIT/ML SUBCUT SCH ×4 (00:52→18:14)
[2020-09-19] MEDS: SUCRALFATE 1 GM/10 ML UDCUP NG SCH ×4 (00:52→18:14)
[2020-09-19] MEDS: ALBUTEROL INHALER 18 GM INH SCH ×4 (00:52→18:14)
[2020-09-19] MEDS: fentaNYL INJ 2,500 MCG in SODIUM CHLORIDE 0.9% 450 ML IV PRN ×4 (02:00→23:50)
[2020-09-19 02:07] LABS: Hemoglobin 7.3 GM/DL (14.0-18.0)
[2020-09-19] MEDS: ALBUMIN 25% 25 GM in PREMIX 1 EACH IV SCH (05:00)
[2020-09-19 05:05] LABS: ABG Base Excess -0.4 MMOL/L (-2.5-2.5); ABG HCO3 23.5 MMOL/L (20-26); ABG Oxygen Saturation 97.5 % (95-100); ABG PCO2 35.9 MM HG (35-48); ABG PH 7.434 (7.35-7.45); ABG PO2 101.5 MM HG (80-95); ABG TCO2 24.6 MMOL/L (23-27); Allen Test Positive; Pt O2 Delivery Device Ventilator
[2020-09-19 05:50] LABS: Eosinophils # 0.1 10*3/uL (0.0-0.87); Hematocrit 22.2 VOL% (42.0-52.0); Hemoglobin 7.1 GM/DL (14.0-18.0); Immature Granulocytes % 5.1 %; Immature Granulocytes Absolute 0.21 #; Lymphocytes # 1.1 10*3/uL (1.4-4.0); Lymphocytes % 26.2 % (21.2-54.2); Mean Corpuscular Volume 96.1 FL (87-102); Mean Platelet Volume 11.1 FL (9.6-12.0); Monocytes % 5.6 % (1.7-12.7); NRBC # 0.07 10*3/uL; Neutrophils % 61.1 % (38.7-73.9); Red Blood Count 2.31 MC/CUMM (3.8-5.5); Red Cell Distribution Width 17.2 % (9.3-17.3); White Blood Count 4.1 T/CUMM (4-12)
[2020-09-19 05:52] LABS: Platelet Count 71 T/CUMM (130-400)
[2020-09-19] MEDS: cefTAZidime 2,000 MG in SYRINGE 1 EACH IV SCH ×3 (06:00→21:00)
[2020-09-19 06:15] LABS: Calcium 7.7 MG/DL (8.5-10.1); Osmolality,Calculated 302.4 MOS/KG (273-304)
[2020-09-19 06:19] LABS: Band Neutrophils 3 % (0-10); Eosinophils 2 % (0-10); Hypochromasia 2+; Lymphocytes 26 % (20-55); Microcytosis 1+; Nucleated Red Blood Cells 3 (0-5); Ovalocytes Slight; Platelet Estimate Decreased; Segmented Neutrophils 65 % (50-85); Total Cells Counted 100
[2020-09-19] MEDS: VANCOMYCIN INJ 1,500 MG in SODIUM CHLORIDE 0.9% 500 ML IV SCH ×2 (06:47→18:14)
[2020-09-19] MEDS: CHOLECALCIFEROL 400 UNIT TABLET PO SCH (09:10)
[2020-09-19] MEDS: lisinopriL 10 MG TABLET PO SCH (09:11)
[2020-09-19] MEDS: INSULIN GLARGINE 100 UNIT/ML SUBCUT SCH (09:11)
[2020-09-19] MEDS: FAMOTIDINE 20 MG TABLET PO SCH ×2 (09:11→21:00)
[2020-09-19] MEDS: POLYETHYLENE GLYCOL POWDER 17 GM PACK PO SCH (09:11)
[2020-09-19] MEDS: ASCORBIC ACID 500 MG TABLET PO SCH ×2 (09:11→21:00)
[2020-09-19] MEDS: ZINC GLUCONATE 50 MG TABLET PO SCH (09:11)
[2020-09-19] MEDS: FOLIC ACID 1 MG TABLET PO SCH (09:11)
[2020-09-19] MEDS: amLODIPine 10 MG TABLET PO SCH (09:11)
[2020-09-19] MEDS: DOCUSATE SODIUM 100 MG CAPSULE PO SCH ×2 (09:11→21:00)
[2020-09-19] MEDS: methylPREDNISolone SOD SUC 40 MG/1 ML VIAL IV SCH ×2 (09:12→21:48)
[2020-09-19] MEDS: FUROSEMIDE 40 MG/4 ML VIAL IV SCH (09:12)
[2020-09-19] MEDS ORDERED: SODIUM CHLORIDE 0.9% 1,000 ML IV PRN (09:45)
[2020-09-19] MEDS ORDERED: DIGOXIN 0.5 MG/2 ML AMP ONE (13:08)
[2020-09-19] MEDS ORDERED: DIGOXIN 0.5 MG/2 ML AMP IV ONE (13:10)
[2020-09-19 13:24] LABS: Basophils % 0.2 % (0.0-0.8); Eosinophils # 0.1 10*3/uL (0.0-0.87); Eosinophils % 1.7 % (0.00-10.9); Hematocrit 24.6 VOL% (42.0-52.0); Hemoglobin 7.9 GM/DL (14.0-18.0); Immature Granulocytes % 5.9 %; Immature Granulocytes Absolute 0.28 #; Lymphocytes # 0.9 10*3/uL (1.4-4.0); Lymphocytes % 19.9 % (21.2-54.2); Mean Corpuscular HGB Conc 32.1 GM/DL (32-36); Mean Corpuscular Volume 96.5 FL (87-102); Mean Platelet Volume 10.5 FL (9.6-12.0); Monocytes % 4.4 % (1.7-12.7); NRBC # 0.08 10*3/uL; Neutrophils % 67.9 % (38.7-73.9); Platelet Count 75 T/CUMM (130-400); Red Blood Count 2.55 MC/CUMM (3.8-5.5); Red Cell Distribution Width 17.4 % (9.3-17.3); White Blood Count 4.7 T/CUMM (4-12)
[2020-09-19 13:25] LABS: ABG Base Excess 10.8 MMOL/L (-2.5-2.5); ABG HCO3 34.2 MMOL/L (20-26); ABG Oxygen Saturation 80.2 % (95-100); ABG PCO2 67.6 MM HG (35-48); ABG PH 7.365 (7.35-7.45); ABG PO2 48.6 MM HG (80-95); ABG TCO2 35.4 MMOL/L (23-27)
[2020-09-19 13:49] LABS: Folate > 24.0 NG/ML (5.4-24.0); Vitamin B12 492 PG/ML (211-911)
[2020-09-19 13:52] LABS: Anisocytosis 1+; Band Neutrophils 3 % (0-10); Eosinophils 4 % (0-10); Hypochromasia 1+; Lymphocytes 17 % (20-55); Microcytosis 1+; Platelet Estimate Decreased; Polychromasia Few; Segmented Neutrophils 71 % (50-85); Total Cells Counted 100
[2020-09-19 14:30] LABS: Sedimentation Rate-Westergren 127 MM/HR (0-20)
[2020-09-19] MEDS: VECURONIUM 100 MG in SODIUM CHLORIDE 0.9% 100 ML IV SCH (14:44)
[2020-09-20] MEDS: SUCRALFATE 1 GM/10 ML UDCUP NG SCH ×4 (01:00→17:15)
[2020-09-20] MEDS: INSULIN LISPRO 100 UNIT/ML SUBCUT SCH ×4 (01:17→17:43)
[2020-09-20] MEDS: ALBUTEROL INHALER 18 GM INH SCH ×4 (01:17→20:53)
[2020-09-20 05:00] LABS: Allen Test Positive; Pt O2 Delivery Device Ventilator
[2020-09-20 05:03] LABS: ABG Base Excess 10.7 MMOL/L (-2.5-2.5); ABG HCO3 40.4 MMOL/L (20-26); ABG Oxygen Saturation 95.2 % (95-100); ABG PO2 81.8 MM HG (80-95); ABG TCO2 43.1 MMOL/L (23-27)
[2020-09-20 05:18] LABS: Basophils % 0.2 % (0.0-0.8); Eosinophils # 0.1 10*3/uL (0.0-0.87); Eosinophils % 1.3 % (0.00-10.9); Hematocrit 33.9 VOL% (42.0-52.0); Immature Granulocytes % 2.7 %; Immature Granulocytes Absolute 0.17 #; Lymphocytes % 16.3 % (21.2-54.2); Mean Corpuscular HGB Conc 31.6 GM/DL (32-36); Mean Corpuscular Volume 96.9 FL (87-102); Mean Platelet Volume 10.9 FL (9.6-12.0); Monocytes % 5.2 % (1.7-12.7); NRBC # 0.06 10*3/uL; Neutrophils % 74.3 % (38.7-73.9); Red Cell Distribution Width 17.2 % (9.3-17.3)
[2020-09-20 05:19] LABS: Hemoglobin 10.7 GM/DL (14.0-18.0); White Blood Count 6.2 T/CUMM (4-12)
[2020-09-20 05:20] LABS: Platelet Count 82 T/CUMM (130-400)
[2020-09-20 05:43] LABS: Albumin 2.3 G/DL (3.4-5.0); Bilirubin,Total 1.5 MG/DL (0.2-1.0); Calcium 8.1 MG/DL (8.5-10.1); Osmolality,Calculated 300.3 MOS/KG (273-304); Total Protein 6.3 G/DL (6.4-8.3)
[2020-09-20] MEDS: cefTAZidime 2,000 MG in SYRINGE 1 EACH IV SCH ×3 (05:50→22:30)
[2020-09-20] MEDS: VECURONIUM 100 MG in SODIUM CHLORIDE 0.9% 100 ML IV SCH ×2 (05:50→23:04)
[2020-09-20] MEDS: VANCOMYCIN INJ 1,500 MG in SODIUM CHLORIDE 0.9% 500 ML IV SCH ×2 (05:51→17:15)
[2020-09-20 06:00] LABS: Hypochromasia Slight; Platelet Estimate Decreased
[2020-09-20 08:00] LABS: ABG Base Excess 10.2 MMOL/L (-2.5-2.5); ABG HCO3 33.9 MMOL/L (20-26); ABG Oxygen Saturation 98.3 % (95-100); ABG PH 7.295 (7.35-7.45); ABG TCO2 36.7 MMOL/L (23-27)
[2020-09-20 08:02] LABS: ABG PCO2 81.1 MM HG (35-48)
[2020-09-20] MEDS: POLYETHYLENE GLYCOL POWDER 17 GM PACK PO SCH (08:26)
[2020-09-20] MEDS: FUROSEMIDE 40 MG/4 ML VIAL IV SCH (08:27)
[2020-09-20] MEDS: CHOLECALCIFEROL 400 UNIT TABLET PO SCH (08:27)
[2020-09-20] MEDS: FOLIC ACID 1 MG TABLET PO SCH (08:27)
[2020-09-20] MEDS: amLODIPine 10 MG TABLET PO SCH ×2 (08:27→09:14)
[2020-09-20] MEDS: FAMOTIDINE 20 MG TABLET PO SCH ×2 (08:27→20:53)
[2020-09-20] MEDS: DOCUSATE SODIUM 100 MG CAPSULE PO SCH ×2 (08:27→20:53)
[2020-09-20] MEDS: ASCORBIC ACID 500 MG TABLET PO SCH ×2 (08:27→20:53)
[2020-09-20] MEDS: ZINC GLUCONATE 50 MG TABLET PO SCH (08:27)
[2020-09-20] MEDS: INSULIN GLARGINE 100 UNIT/ML SUBCUT SCH (08:28)
[2020-09-20] MEDS: lisinopriL 10 MG TABLET PO SCH ×2 (08:28→09:14)
[2020-09-20] MEDS: methylPREDNISolone SOD SUC 40 MG/1 ML VIAL IV SCH ×2 (08:28→20:53)
[2020-09-20] MEDS: fentaNYL INJ 2,500 MCG in SODIUM CHLORIDE 0.9% 450 ML IV PRN ×2 (08:34→15:19)
[2020-09-20 08:59] LABS: Hemoglobin A1 (Alkaline) 97.8 % (96.5-98.5); Hemoglobin A2 (Alkaline) 2.2 % (1.5-3.5)
[2020-09-20] MEDS: ACETAMINOPHEN 325 MG TABLET PO PRN (18:21)
[2020-09-21] MEDS: SUCRALFATE 1 GM/10 ML UDCUP NG SCH ×5 (00:45→23:24)
[2020-09-21] MEDS: INSULIN LISPRO 100 UNIT/ML SUBCUT SCH ×5 (00:45→23:24)
[2020-09-21] MEDS: ALBUTEROL INHALER 18 GM INH SCH ×4 (00:54→19:30)
[2020-09-21] MEDS: fentaNYL INJ 2,500 MCG in SODIUM CHLORIDE 0.9% 450 ML IV PRN ×2 (00:55→13:44)
[2020-09-21 02:50] LABS: ABG Base Excess 9.7 MMOL/L (-2.5-2.5); ABG HCO3 39.4 MMOL/L (20-26); ABG Oxygen Saturation 96.5 % (95-100); ABG PH 7.267 (7.35-7.45); ABG PO2 96.4 MM HG (80-95); ABG TCO2 42.1 MMOL/L (23-27)
[2020-09-21 03:10] LABS: ABG PCO2 88.4 MM HG (35-48)
[2020-09-21 04:25] LABS: Basophils % 0.2 % (0.0-0.8); Eosinophils % 0.7 % (0.00-10.9); Hematocrit 32.8 VOL% (42.0-52.0); Immature Granulocytes Absolute 0.12 #; Lymphocytes # 0.9 10*3/uL (1.4-4.0); Lymphocytes % 14.6 % (21.2-54.2); Mean Corpuscular HGB Conc 30.5 GM/DL (32-36); Mean Corpuscular Volume 98.8 FL (87-102); Mean Platelet Volume 10.5 FL (9.6-12.0); Monocytes % 6.1 % (1.7-12.7); NRBC # 0.03 10*3/uL; Neutrophils % 76.4 % (38.7-73.9); Platelet Count 107 T/CUMM (130-400); Red Blood Count 3.32 MC/CUMM (3.8-5.5); White Blood Count 6.1 T/CUMM (4-12)
[2020-09-21 04:42] LABS: Albumin 2.1 G/DL (3.4-5.0); Bilirubin,Total 1.2 MG/DL (0.2-1.0); Calcium 8.1 MG/DL (8.5-10.1); Osmolality,Calculated 304.7 MOS/KG (273-304); Total Protein 6.1 G/DL (6.4-8.3)
[2020-09-21] MEDS: cefTAZidime 2,000 MG in SYRINGE 1 EACH IV SCH ×3 (06:17→22:55)
[2020-09-21] MEDS: VANCOMYCIN INJ 1,500 MG in SODIUM CHLORIDE 0.9% 500 ML IV SCH ×2 (06:17→17:18)
[2020-09-21] MEDS: FUROSEMIDE 40 MG/4 ML VIAL IV SCH (08:09)
[2020-09-21] MEDS: methylPREDNISolone SOD SUC 40 MG/1 ML VIAL IV SCH ×2 (08:09→20:05)
[2020-09-21] MEDS: INSULIN GLARGINE 100 UNIT/ML SUBCUT SCH (08:09)
[2020-09-21] MEDS: DOCUSATE SODIUM 100 MG CAPSULE PO SCH (08:10)
[2020-09-21] MEDS: ZINC GLUCONATE 50 MG TABLET PO SCH (08:10)
[2020-09-21] MEDS: ASCORBIC ACID 500 MG TABLET PO SCH ×2 (08:10→21:04)
[2020-09-21] MEDS: FAMOTIDINE 20 MG TABLET PO SCH ×2 (08:10→20:05)
[2020-09-21] MEDS: lisinopriL 10 MG TABLET PO SCH (08:10)
[2020-09-21] MEDS: amLODIPine 10 MG TABLET PO SCH (08:10)
[2020-09-21] MEDS: POLYETHYLENE GLYCOL POWDER 17 GM PACK PO SCH (08:10)
[2020-09-21] MEDS: FOLIC ACID 1 MG TABLET PO SCH (08:11)
[2020-09-21] MEDS: CHOLECALCIFEROL 400 UNIT TABLET PO SCH (08:11)
[2020-09-21] MEDS: MICAFUNGIN 100 MG in SODIUM CHLORIDE 0.9% 100 ML IV SCH (13:51)
[2020-09-21] MEDS: VECURONIUM 100 MG in SODIUM CHLORIDE 0.9% 100 ML IV SCH (19:12)
[2020-09-21] MEDS: DOCUSATE SODIUM 100 MG/10 ML UDCUP PO SCH (20:05)
[2020-09-22] MEDS: ALBUTEROL INHALER 18 GM INH SCH ×4 (01:21→20:10)
[2020-09-22] MEDS: fentaNYL INJ 2,500 MCG in SODIUM CHLORIDE 0.9% 450 ML IV PRN (03:12)
[2020-09-22 04:22] LABS: ABG Base Excess 10.8 MMOL/L (-2.5-2.5); ABG PH 7.261 (7.35-7.45); ABG PO2 116.5 MM HG (80-95); ABG TCO2 43.9 MMOL/L (23-27)
[2020-09-22 04:26] LABS: ABG PCO2 93.3 MM HG (35-48)
[2020-09-22] MEDS ORDERED: SALIVA SUBSTITUTE SPRAY 60 ML CAN SWISH/SWAL PRN (05:18)
[2020-09-22 05:46] LABS: Basophils % 0.2 % (0.0-0.8); Eosinophils % 0.6 % (0.00-10.9); Hematocrit 34.9 VOL% (42.0-52.0); Hemoglobin 10.8 GM/DL (14.0-18.0); Immature Granulocytes % 1.2 %; Immature Granulocytes Absolute 0.08 #; Lymphocytes # 0.9 10*3/uL (1.4-4.0); Lymphocytes % 14.1 % (21.2-54.2); Mean Corpuscular HGB Conc 30.9 GM/DL (32-36); Mean Corpuscular Volume 101.5 FL (87-102); Mean Platelet Volume 10.7 FL (9.6-12.0); Monocytes % 6.2 % (1.7-12.7); NRBC # 0.03 10*3/uL; Neutrophils % 77.7 % (38.7-73.9); Platelet Count 116 T/CUMM (130-400); Red Blood Count 3.44 MC/CUMM (3.8-5.5); Red Cell Distribution Width 17.1 % (9.3-17.3); White Blood Count 6.5 T/CUMM (4-12)
[2020-09-22] MEDS: SUCRALFATE 1 GM/10 ML UDCUP NG SCH ×4 (06:03→23:57)
[2020-09-22] MEDS: INSULIN LISPRO 100 UNIT/ML SUBCUT SCH ×4 (06:03→23:57)
[2020-09-22] MEDS: cefTAZidime 2,000 MG in SYRINGE 1 EACH IV SCH ×3 (06:03→22:53)
[2020-09-22] MEDS: VANCOMYCIN INJ 1,500 MG in SODIUM CHLORIDE 0.9% 500 ML IV SCH ×2 (06:03→17:28)
[2020-09-22 06:08] LABS: Calcium 8.4 MG/DL (8.5-10.1); Osmolality,Calculated 314.3 MOS/KG (273-304)
[2020-09-22 06:15] VITALS: BP 108/59
[2020-09-22] MEDS: INSULIN GLARGINE 100 UNIT/ML SUBCUT SCH (08:23)
[2020-09-22] MEDS: methylPREDNISolone SOD SUC 40 MG/1 ML VIAL IV SCH ×3 (08:24→23:57)
[2020-09-22] MEDS: CHOLECALCIFEROL 400 UNIT TABLET PO SCH (08:24)
[2020-09-22] MEDS: FAMOTIDINE 20 MG TABLET PO SCH ×2 (08:25→20:10)
[2020-09-22] MEDS: ZINC GLUCONATE 50 MG TABLET PO SCH (08:25)
[2020-09-22] MEDS: ASCORBIC ACID 500 MG TABLET PO SCH ×2 (08:25→20:10)
[2020-09-22] MEDS: DOCUSATE SODIUM 100 MG/10 ML UDCUP PO SCH ×2 (08:26→20:10)
[2020-09-22] MEDS: POLYETHYLENE GLYCOL POWDER 17 GM PACK PO SCH (08:26)
[2020-09-22] MEDS: FUROSEMIDE 40 MG/4 ML VIAL IV SCH (08:26)
[2020-09-22] MEDS: FOLIC ACID 1 MG TABLET PO SCH (08:26)
[2020-09-22] MEDS: lisinopriL 10 MG TABLET PO SCH (09:12)
[2020-09-22] MEDS: amLODIPine 10 MG TABLET PO SCH (09:12)
[2020-09-22] MEDS: ACETAMINOPHEN 325 MG TABLET PO PRN (11:00)
[2020-09-22] MEDS: MICAFUNGIN 100 MG in SODIUM CHLORIDE 0.9% 100 ML IV SCH (14:55)
[2020-09-22] MEDS: VECURONIUM 100 MG in SODIUM CHLORIDE 0.9% 100 ML IV SCH (17:29)
[2020-09-22] MEDS: MORPHINE 4 MG/1 ML VIAL IV PRN (20:15)
[2020-09-23] MEDS: ALBUTEROL INHALER 18 GM INH SCH ×4 (00:36→18:05)
[2020-09-23] MEDS: MORPHINE 4 MG/1 ML VIAL IV PRN ×2 (04:20→20:30)
[2020-09-23 04:23] LABS: Eosinophils % 0.7 % (0.00-10.9); Hematocrit 32.6 VOL% (42.0-52.0); Hemoglobin 10.3 GM/DL (14.0-18.0); Immature Granulocytes % 1.3 %; Immature Granulocytes Absolute 0.08 #; Lymphocytes % 16.1 % (21.2-54.2); Mean Corpuscular HGB Conc 31.6 GM/DL (32-36); Mean Corpuscular Volume 96.7 FL (87-102); Mean Platelet Volume 10.7 FL (9.6-12.0); Monocytes % 5.8 % (1.7-12.7); NRBC # 0.02 10*3/uL; Neutrophils % 76.1 % (38.7-73.9); Platelet Count 108 T/CUMM (130-400); Red Blood Count 3.37 MC/CUMM (3.8-5.5); Red Cell Distribution Width 16.1 % (9.3-17.3)
[2020-09-23 04:58] LABS: Calcium 8.6 MG/DL (8.5-10.1); Osmolality,Calculated 313.6 MOS/KG (273-304)
[2020-09-23 05:07] LABS: ABG Base Excess 13.2 MMOL/L (-2.5-2.5); ABG HCO3 39.6 MMOL/L (20-26); ABG Oxygen Saturation 96.2 % (95-100); ABG PCO2 61.2 MM HG (35-48); ABG PH 7.429 (7.35-7.45); ABG PO2 85.8 MM HG (80-95); ABG TCO2 41.5 MMOL/L (23-27); Allen Test Positive; Pt O2 Delivery Device Ventilator
[2020-09-23] MEDS: SUCRALFATE 1 GM/10 ML UDCUP NG SCH ×3 (06:05→18:04)
[2020-09-23] MEDS: INSULIN LISPRO 100 UNIT/ML SUBCUT SCH ×3 (06:05→18:04)
[2020-09-23] MEDS: VANCOMYCIN INJ 1,500 MG in SODIUM CHLORIDE 0.9% 500 ML IV SCH (06:23)
[2020-09-23] MEDS: cefTAZidime 2,000 MG in SYRINGE 1 EACH IV SCH ×2 (08:53→16:14)
[2020-09-23] MEDS: methylPREDNISolone SOD SUC 40 MG/1 ML VIAL IV SCH ×2 (08:53→16:16)
[2020-09-23] MEDS: CHOLECALCIFEROL 400 UNIT TABLET PO SCH (08:54)
[2020-09-23] MEDS: amLODIPine 10 MG TABLET PO SCH (08:54)
[2020-09-23] MEDS: FUROSEMIDE 40 MG/4 ML VIAL IV SCH ×2 (08:54→20:07)
[2020-09-23] MEDS: DOCUSATE SODIUM 100 MG/10 ML UDCUP PO SCH ×2 (08:54→20:07)
[2020-09-23] MEDS: ZINC GLUCONATE 50 MG TABLET PO SCH (08:54)
[2020-09-23] MEDS: FAMOTIDINE 20 MG TABLET PO SCH ×2 (08:54→20:08)
[2020-09-23] MEDS: ASCORBIC ACID 500 MG TABLET PO SCH ×2 (08:54→20:08)
[2020-09-23] MEDS: FOLIC ACID 1 MG TABLET PO SCH (08:54)
[2020-09-23] MEDS: POLYETHYLENE GLYCOL POWDER 17 GM PACK PO SCH (08:55)
[2020-09-23] MEDS: lisinopriL 10 MG TABLET PO SCH (08:55)
[2020-09-23] MEDS: INSULIN GLARGINE 100 UNIT/ML SUBCUT SCH (08:55)
[2020-09-23] MEDS: fentaNYL INJ 2,500 MCG in SODIUM CHLORIDE 0.9% 450 ML IV PRN (14:05)
[2020-09-23] MEDS: MICAFUNGIN 100 MG in SODIUM CHLORIDE 0.9% 100 ML IV SCH (15:15)
[2020-09-23] MEDS: MENTHOL/ZINC OXIDE OINT 71 GM JAR TOP SCH (20:07)
[2020-09-24] MEDS: cefTAZidime 2,000 MG in SYRINGE 1 EACH IV SCH ×3 (00:14→16:33)
[2020-09-24] MEDS: SUCRALFATE 1 GM/10 ML UDCUP NG SCH ×4 (00:14→18:06)
[2020-09-24] MEDS: ALBUTEROL INHALER 18 GM INH SCH ×4 (00:15→18:07)
[2020-09-24] MEDS: INSULIN LISPRO 100 UNIT/ML SUBCUT SCH ×4 (00:15→18:06)
[2020-09-24] MEDS: methylPREDNISolone SOD SUC 40 MG/1 ML VIAL IV SCH ×3 (01:10→16:32)
[2020-09-24 04:09] LABS: Allen Test Positive; Pt O2 Delivery Device Ventilator
[2020-09-24 04:19] LABS: ABG Base Excess 15.7 MMOL/L (-2.5-2.5); ABG HCO3 39.6 MMOL/L (20-26); ABG Oxygen Saturation 99.4 % (95-100); ABG PCO2 60.8 MM HG (35-48)
[2020-09-24 05:13] LABS: Basophils % 0.3 % (0.0-0.8); Eosinophils # 0.1 10*3/uL (0.0-0.87); Eosinophils % 3.1 % (0.00-10.9); Hematocrit 26.6 VOL% (42.0-52.0); Hemoglobin 8.4 GM/DL (14.0-18.0); Immature Granulocytes Absolute 0.04 #; Lymphocytes # 0.8 10*3/uL (1.4-4.0); Lymphocytes % 21.2 % (21.2-54.2); Mean Corpuscular HGB Conc 31.6 GM/DL (32-36); Mean Corpuscular Volume 97.1 FL (87-102); Mean Platelet Volume 10.7 FL (9.6-12.0); Monocytes % 5.6 % (1.7-12.7); Neutrophils % 68.8 % (38.7-73.9); Platelet Count 103 T/CUMM (130-400); Red Blood Count 2.74 MC/CUMM (3.8-5.5); Red Cell Distribution Width 16.2 % (9.3-17.3); White Blood Count 3.9 T/CUMM (4-12)
[2020-09-24 05:36] LABS: Calcium 8.2 MG/DL (8.5-10.1); Osmolality,Calculated 314.3 MOS/KG (273-304)
[2020-09-24] MEDS: POTASSIUM CHLORIDE 20 MEQ TABLET PO PRN ×3 (06:26→16:32)
[2020-09-24] MEDS: MENTHOL/ZINC OXIDE OINT 71 GM JAR TOP SCH ×2 (09:22→20:04)
[2020-09-24] MEDS: FONDAPARINUX 7.5 MG/0.6 ML SYRINGE SUBCUT SCH (09:23)
[2020-09-24] MEDS: ZINC GLUCONATE 50 MG TABLET PO SCH (09:24)
[2020-09-24] MEDS: lisinopriL 10 MG TABLET PO SCH (09:24)
[2020-09-24] MEDS: CHOLECALCIFEROL 400 UNIT TABLET PO SCH (09:24)
[2020-09-24] MEDS: FOLIC ACID 1 MG TABLET PO SCH (09:25)
[2020-09-24] MEDS: ASCORBIC ACID 500 MG TABLET PO SCH ×2 (09:25→20:04)
[2020-09-24] MEDS: FAMOTIDINE 20 MG TABLET PO SCH ×2 (09:25→20:04)
[2020-09-24] MEDS: DOCUSATE SODIUM 100 MG/10 ML UDCUP PO SCH ×2 (09:25→20:04)
[2020-09-24] MEDS: INSULIN GLARGINE 100 UNIT/ML SUBCUT SCH (09:27)
[2020-09-24] MEDS: FUROSEMIDE 40 MG/4 ML VIAL IV SCH ×2 (09:28→20:04)
[2020-09-24] MEDS: amLODIPine 10 MG TABLET PO SCH (09:28)
[2020-09-24] MEDS: POLYETHYLENE GLYCOL POWDER 17 GM PACK PO SCH (09:28)
[2020-09-24] MEDS ORDERED: VANCOMYCIN INJ 1,500 MG in SODIUM CHLORIDE 0.9% 500 ML IV SCH (10:00)
[2020-09-24] MEDS ORDERED: INSULIN GLARGINE 100 UNIT/ML SUBCUT ONE (11:00)
[2020-09-24] MEDS: MICAFUNGIN 100 MG in SODIUM CHLORIDE 0.9% 100 ML IV SCH (14:23)
[2020-09-24] MEDS: fentaNYL INJ 2,500 MCG in SODIUM CHLORIDE 0.9% 450 ML IV PRN (18:27)
[2020-09-24] MEDS: ACETAMINOPHEN 325 MG TABLET PO PRN (20:04)
[2020-09-25] MEDS: cefTAZidime 2,000 MG in SYRINGE 1 EACH IV SCH ×2 (00:34→14:33)
[2020-09-25] MEDS: SUCRALFATE 1 GM/10 ML UDCUP NG SCH ×4 (00:34→17:56)
[2020-09-25] MEDS: ALBUTEROL INHALER 18 GM INH SCH ×4 (00:35→19:04)
[2020-09-25] MEDS: methylPREDNISolone SOD SUC 40 MG/1 ML VIAL IV SCH ×3 (00:35→15:16)
[2020-09-25] MEDS: INSULIN LISPRO 100 UNIT/ML SUBCUT SCH ×4 (00:35→17:56)
[2020-09-25 04:34] LABS: Basophils % 0.2 % (0.0-0.8); Eosinophils # 0.1 10*3/uL (0.0-0.87); Eosinophils % 1.6 % (0.00-10.9); Hematocrit 32.1 VOL% (42.0-52.0); Immature Granulocytes Absolute 0.05 #; Lymphocytes # 0.7 10*3/uL (1.4-4.0); Lymphocytes % 13.4 % (21.2-54.2); Mean Corpuscular HGB Conc 31.2 GM/DL (32-36); Mean Platelet Volume 11.1 FL (9.6-12.0); Monocytes % 4.8 % (1.7-12.7); Red Blood Count 3.31 MC/CUMM (3.8-5.5); Red Cell Distribution Width 16.5 % (9.3-17.3)
[2020-09-25 04:38] LABS: Platelet Count 98 T/CUMM (130-400)
[2020-09-25 04:47] LABS: ABG Base Excess 14.9 MMOL/L (-2.5-2.5); ABG HCO3 38.8 MMOL/L (20-26); ABG Oxygen Saturation 96.9 % (95-100); ABG PCO2 61.2 MM HG (35-48); ABG PH 7.446 (7.35-7.45); ABG TCO2 37.3 MMOL/L (23-27); Allen Test Positive; Pt O2 Delivery Device Ventilator
[2020-09-25 04:49] LABS: Calcium 8.4 MG/DL (8.5-10.1); Osmolality,Calculated 309.4 MOS/KG (273-304)
[2020-09-25 05:03] LABS: Hypochromasia 1+; Microcytosis 1+; Platelet Estimate Decreased
[2020-09-25] MEDS: POTASSIUM CHLORIDE 20 MEQ TABLET PO PRN ×2 (05:41→08:14)
[2020-09-25] MEDS: DOCUSATE SODIUM 100 MG/10 ML UDCUP PO SCH ×2 (08:11→21:04)
[2020-09-25] MEDS: FUROSEMIDE 40 MG/4 ML VIAL IV SCH ×2 (08:12→21:04)
[2020-09-25] MEDS: ASCORBIC ACID 500 MG TABLET PO SCH ×2 (08:12→21:04)
[2020-09-25] MEDS: ZINC GLUCONATE 50 MG TABLET PO SCH (08:12)
[2020-09-25] MEDS: FOLIC ACID 1 MG TABLET PO SCH (08:12)
[2020-09-25] MEDS: FAMOTIDINE 20 MG TABLET PO SCH ×2 (08:12→21:04)
[2020-09-25] MEDS: lisinopriL 10 MG TABLET PO SCH (08:13)
[2020-09-25] MEDS: amLODIPine 10 MG TABLET PO SCH (08:13)
[2020-09-25] MEDS: POLYETHYLENE GLYCOL POWDER 17 GM PACK PO SCH (08:13)
[2020-09-25] MEDS: CHOLECALCIFEROL 400 UNIT TABLET PO SCH (08:13)
[2020-09-25] MEDS: FONDAPARINUX 7.5 MG/0.6 ML SYRINGE SUBCUT SCH (08:14)
[2020-09-25] MEDS: MENTHOL/ZINC OXIDE OINT 71 GM JAR TOP SCH ×2 (08:54→21:04)
[2020-09-25] MEDS: INSULIN GLARGINE 100 UNIT/ML SUBCUT SCH (08:54)
[2020-09-25] MEDS: ACETAMINOPHEN 325 MG TABLET PO PRN (11:44)
[2020-09-25] MEDS: MICAFUNGIN 100 MG in SODIUM CHLORIDE 0.9% 100 ML IV SCH (14:37)
[2020-09-25] MEDS: LINEZOLID INJ 600 MG in PREMIX 1 EACH IV SCH (15:16)
[2020-09-25 17:10] LABS: ABG Base Excess 13.1 MMOL/L (-2.5-2.5); ABG HCO3 36.8 MMOL/L (20-26); ABG Oxygen Saturation 91.1 % (95-100); ABG PCO2 68.7 MM HG (35-48); ABG PH 7.384 (7.35-7.45); ABG PO2 64.9 MM HG (80-95); ABG TCO2 37.4 MMOL/L (23-27)
[2020-09-25] MEDS: hydrALAZINE 20 MG/1 ML VIAL IV PRN (18:36)
[2020-09-25] MEDS: fentaNYL INJ 2,500 MCG in SODIUM CHLORIDE 0.9% 450 ML IV PRN (21:25)
[2020-09-26] MEDS: INSULIN LISPRO 100 UNIT/ML SUBCUT SCH ×4 (00:45→17:16)
[2020-09-26] MEDS: methylPREDNISolone SOD SUC 40 MG/1 ML VIAL IV SCH ×3 (00:45→20:21)
[2020-09-26] MEDS: SUCRALFATE 1 GM/10 ML UDCUP NG SCH ×4 (00:45→17:15)
[2020-09-26] MEDS: ALBUTEROL INHALER 18 GM INH SCH ×4 (00:45→19:05)
[2020-09-26 03:30] LABS: ABG Base Excess 13.7 MMOL/L (-2.5-2.5); ABG HCO3 40.5 MMOL/L (20-26); ABG Oxygen Saturation 92.5 % (95-100); ABG PCO2 64.4 MM HG (35-48); ABG PH 7.416 (7.35-7.45); ABG PO2 67.6 MM HG (80-95); ABG TCO2 42.4 MMOL/L (23-27)
[2020-09-26] MEDS: LINEZOLID INJ 600 MG in PREMIX 1 EACH IV SCH ×2 (03:54→17:00)
[2020-09-26 04:19] LABS: Eosinophils % 0.6 % (0.00-10.9); Hematocrit 33.1 VOL% (42.0-52.0); Hemoglobin 10.2 GM/DL (14.0-18.0); Immature Granulocytes % 0.6 %; Immature Granulocytes Absolute 0.04 #; Lymphocytes # 0.6 10*3/uL (1.4-4.0); Lymphocytes % 8.5 % (21.2-54.2); Mean Corpuscular HGB Conc 30.8 GM/DL (32-36); Mean Corpuscular Volume 99.1 FL (87-102); Mean Platelet Volume 10.6 FL (9.6-12.0); Monocytes % 3.8 % (1.7-12.7); NRBC # 0.02 10*3/uL; Neutrophils % 86.5 % (38.7-73.9); Red Blood Count 3.34 MC/CUMM (3.8-5.5); Red Cell Distribution Width 17.1 % (9.3-17.3); White Blood Count 6.5 T/CUMM (4-12)
[2020-09-26 04:20] LABS: Platelet Count 122 T/CUMM (130-400)
[2020-09-26 04:48] LABS: Calcium 8.4 MG/DL (8.5-10.1); Osmolality,Calculated 311.6 MOS/KG (273-304)
[2020-09-26] MEDS: POTASSIUM CHLORIDE 20 MEQ TABLET PO PRN ×4 (07:03→18:31)
[2020-09-26] MEDS: INSULIN GLARGINE 100 UNIT/ML SUBCUT SCH (08:12)
[2020-09-26] MEDS: FUROSEMIDE 40 MG/4 ML VIAL IV SCH (08:12)
[2020-09-26] MEDS: amLODIPine 10 MG TABLET PO SCH (08:13)
[2020-09-26] MEDS: CHOLECALCIFEROL 400 UNIT TABLET PO SCH (08:13)
[2020-09-26] MEDS: FAMOTIDINE 20 MG TABLET PO SCH ×2 (08:13→20:24)
[2020-09-26] MEDS: DOCUSATE SODIUM 100 MG/10 ML UDCUP PO SCH ×2 (08:13→20:21)
[2020-09-26] MEDS: ZINC GLUCONATE 50 MG TABLET PO SCH (08:13)
[2020-09-26] MEDS: ASCORBIC ACID 500 MG TABLET PO SCH ×2 (08:13→20:21)
[2020-09-26] MEDS: POLYETHYLENE GLYCOL POWDER 17 GM PACK PO SCH (08:13)
[2020-09-26] MEDS: FOLIC ACID 1 MG TABLET PO SCH (08:13)
[2020-09-26] MEDS: lisinopriL 10 MG TABLET PO SCH (08:13)
[2020-09-26] MEDS: MENTHOL/ZINC OXIDE OINT 71 GM JAR TOP SCH ×2 (08:14→21:42)
[2020-09-26] MEDS: FONDAPARINUX 7.5 MG/0.6 ML SYRINGE SUBCUT SCH (08:16)
[2020-09-26] MEDS: hydrALAZINE 20 MG/1 ML VIAL IV PRN ×2 (09:34→22:40)
[2020-09-26] MEDS ORDERED: MIDAZOLAM 2 MG/2 ML VIAL IV ONE (10:19)
[2020-09-26] MEDS ORDERED: METOPROLOL TARTRATE 5 MG/5 ML VIAL IV ONE (10:29)
[2020-09-26] MEDS ORDERED: INSULIN GLARGINE 100 UNIT/ML SUBCUT ONE (13:30)
[2020-09-26] MEDS: ACETAMINOPHEN 325 MG TABLET PO PRN ×2 (14:00→20:23)
[2020-09-26] MEDS: METOPROLOL TARTRATE 25 MG TABLET PO SCH ×2 (14:00→20:23)
[2020-09-26] MEDS: MICAFUNGIN 100 MG in SODIUM CHLORIDE 0.9% 100 ML IV SCH (14:05)
[2020-09-27] MEDS: SUCRALFATE 1 GM/10 ML UDCUP NG SCH ×2 (00:22→06:04)
[2020-09-27] MEDS: INSULIN LISPRO 100 UNIT/ML SUBCUT SCH ×4 (00:22→17:50)
[2020-09-27] MEDS: ALBUTEROL INHALER 18 GM INH SCH ×4 (01:10→18:21)
[2020-09-27 03:37] LABS: ABG Base Excess 9.1 MMOL/L (-2.5-2.5); ABG HCO3 32.9 MMOL/L (20-26); ABG Oxygen Saturation 99.1 % (95-100); ABG PCO2 64.4 MM HG (35-48); ABG PH 7.361 (7.35-7.45); ABG TCO2 33.8 MMOL/L (23-27)
[2020-09-27] MEDS: LINEZOLID INJ 600 MG in PREMIX 1 EACH IV SCH ×2 (04:11→16:33)
[2020-09-27 05:14] LABS: Basophils % 0.2 % (0.0-0.8); Eosinophils # 0.1 10*3/uL (0.0-0.87); Eosinophils % 0.9 % (0.00-10.9); Hemoglobin 8.6 GM/DL (14.0-18.0); Immature Granulocytes % 1.1 %; Immature Granulocytes Absolute 0.07 #; Lymphocytes # 1.1 10*3/uL (1.4-4.0); Lymphocytes % 16.2 % (21.2-54.2); Mean Corpuscular HGB Conc 29.7 GM/DL (32-36); Mean Corpuscular Volume 102.8 FL (87-102); Mean Platelet Volume 10.6 FL (9.6-12.0); Neutrophils % 75.6 % (38.7-73.9); Platelet Count 155 T/CUMM (130-400); Red Blood Count 2.82 MC/CUMM (3.8-5.5); Red Cell Distribution Width 17.5 % (9.3-17.3); White Blood Count 6.7 T/CUMM (4-12)
[2020-09-27 05:40] LABS: Calcium 8.2 MG/DL (8.5-10.1); Osmolality,Calculated 316.8 MOS/KG (273-304)
[2020-09-27 05:44] LABS: Albumin 1.6 G/DL (3.4-5.0); Bilirubin,Total 0.8 MG/DL (0.2-1.0); Calcium 8.2 MG/DL (8.5-10.1); Ferritin 551.5 ng/ml (26-388); Osmolality,Calculated 308.4 MOS/KG (273-304); Total Protein 5.7 G/DL (6.4-8.3)
[2020-09-27] MEDS: POTASSIUM CHLORIDE 20 MEQ TABLET PO PRN ×2 (06:07→08:53)
[2020-09-27] MEDS: fentaNYL INJ 2,500 MCG in SODIUM CHLORIDE 0.9% 450 ML IV PRN (06:08)
[2020-09-27] MEDS: ASCORBIC ACID 500 MG TABLET PO SCH ×2 (08:53→20:16)
[2020-09-27] MEDS: DOCUSATE SODIUM 100 MG/10 ML UDCUP PO SCH ×2 (08:56→20:13)
[2020-09-27] MEDS: FOLIC ACID 1 MG TABLET PO SCH (08:56)
[2020-09-27] MEDS: CHOLECALCIFEROL 400 UNIT TABLET PO SCH (08:56)
[2020-09-27] MEDS: POLYETHYLENE GLYCOL POWDER 17 GM PACK PO SCH (08:56)
[2020-09-27] MEDS: INSULIN GLARGINE 100 UNIT/ML SUBCUT SCH (08:57)
[2020-09-27] MEDS: methylPREDNISolone SOD SUC 40 MG/1 ML VIAL IV SCH ×2 (08:58→20:13)
[2020-09-27] MEDS: FONDAPARINUX 7.5 MG/0.6 ML SYRINGE SUBCUT SCH (08:59)
[2020-09-27] MEDS: FUROSEMIDE 40 MG/4 ML VIAL IV SCH (08:59)
[2020-09-27] MEDS: ZINC GLUCONATE 50 MG TABLET PO SCH (09:00)
[2020-09-27] MEDS: MENTHOL/ZINC OXIDE OINT 71 GM JAR TOP SCH ×2 (09:05→21:07)
[2020-09-27] MEDS: FAMOTIDINE 20 MG TABLET PO SCH ×2 (09:07→20:17)
[2020-09-27] MEDS: METOPROLOL TARTRATE 25 MG TABLET PO SCH ×3 (09:07→20:17)
[2020-09-27] MEDS: amLODIPine 10 MG TABLET PO SCH ×2 (09:08→11:32)
[2020-09-27] MEDS: lisinopriL 10 MG TABLET PO SCH ×2 (09:10→11:32)
[2020-09-27] MEDS: MICAFUNGIN 100 MG in SODIUM CHLORIDE 0.9% 100 ML IV SCH (15:04)
[2020-09-28] MEDS: INSULIN LISPRO 100 UNIT/ML SUBCUT SCH ×2 (00:59→06:13)
[2020-09-28] MEDS: ALBUTEROL INHALER 18 GM INH SCH ×2 (01:01→08:16)
[2020-09-28 03:58] LABS: Basophils % 0.1 % (0.0-0.8); Eosinophils # 0.1 10*3/uL (0.0-0.87); Eosinophils % 0.8 % (0.00-10.9); Hematocrit 27.4 VOL% (42.0-52.0); Hemoglobin 8.5 GM/DL (14.0-18.0); Immature Granulocytes Absolute 0.08 #; Lymphocytes # 0.8 10*3/uL (1.4-4.0); Lymphocytes % 10.8 % (21.2-54.2); Mean Corpuscular Volume 100.4 FL (87-102); Mean Platelet Volume 10.5 FL (9.6-12.0); Neutrophils % 82.3 % (38.7-73.9); Platelet Count 182 T/CUMM (130-400); Red Blood Count 2.73 MC/CUMM (3.8-5.5); Red Cell Distribution Width 17.4 % (9.3-17.3); White Blood Count 7.6 T/CUMM (4-12)
[2020-09-28 04:12] LABS: ABG Base Excess 6.5 MMOL/L (-2.5-2.5); ABG Oxygen Saturation 97.8 % (95-100); ABG PH 7.317 (7.35-7.45); ABG PO2 112.2 MM HG (80-95); ABG TCO2 36.1 MMOL/L (23-27); Allen Test Positive; Pt O2 Delivery Device Ventilator
[2020-09-28] MEDS: LINEZOLID INJ 600 MG in PREMIX 1 EACH IV SCH (04:30)
[2020-09-28 04:39] LABS: Calcium 8.1 MG/DL (8.5-10.1); Osmolality,Calculated 309.4 MOS/KG (273-304)
[2020-09-28] MEDS: POTASSIUM CHLORIDE 20 MEQ TABLET PO PRN (06:27)
[2020-09-28] MEDS: METOPROLOL TARTRATE 25 MG TABLET PO SCH (08:17)
[2020-09-28] MEDS: methylPREDNISolone SOD SUC 40 MG/1 ML VIAL IV SCH (08:17)
[2020-09-28] MEDS: CHOLECALCIFEROL 400 UNIT TABLET PO SCH (08:17)
[2020-09-28] MEDS: FAMOTIDINE 20 MG TABLET PO SCH (08:18)
[2020-09-28] MEDS: ASCORBIC ACID 500 MG TABLET PO SCH (08:18)
[2020-09-28] MEDS: lisinopriL 10 MG TABLET PO SCH (08:18)
[2020-09-28] MEDS: DOCUSATE SODIUM 100 MG/10 ML UDCUP PO SCH (08:18)
[2020-09-28] MEDS: ZINC GLUCONATE 50 MG TABLET PO SCH (08:18)
[2020-09-28] MEDS: amLODIPine 10 MG TABLET PO SCH (08:18)
[2020-09-28] MEDS: FOLIC ACID 1 MG TABLET PO SCH (08:18)
[2020-09-28] MEDS: FUROSEMIDE 40 MG/4 ML VIAL IV SCH (08:19)
[2020-09-28] MEDS: FONDAPARINUX 7.5 MG/0.6 ML SYRINGE SUBCUT SCH (08:20)
[2020-09-28] MEDS: POLYETHYLENE GLYCOL POWDER 17 GM PACK PO SCH (08:20)
[2020-09-28] MEDS: INSULIN GLARGINE 100 UNIT/ML SUBCUT SCH (08:21)
[2020-09-28] MEDS: MENTHOL/ZINC OXIDE OINT 71 GM JAR TOP SCH (08:22)
[2020-09-28] MEDS ORDERED: LORazepam 2 MG/1 ML VIAL IV PRN (11:00)
[2020-09-28] MEDS ORDERED: MORPHINE 4 MG/1 ML VIAL IV PRN (11:00)
== END 2020-09-28 11:42 | disposition expired | DRG 207 ==
LOC: N.ED 11:30 → SUATTDRO 13:40 → N.EDINP 13:40 → N.2E 14:43 → N.CC 08-30 05:13
PROVIDERS: ADMIT Internal Medicine; ATTEND Internal Medicine